=== PATIENT | male | born 1955 | race African-American/Black ===

== ENCOUNTER 2016-08-18 00:56 | Inpatient (IN) | payer MEDICARE ==
[~2016-08-18] VITALS: Ht 185.4 cm; Wt 94.0 kg
[2016-08-18] VITALS (28 sets, daily range): BP systolic 129–234; BP diastolic 74–145
[~2016-08-18 00:56] MED LIST: AMLO10TA2 PO; ATEN100T PO; HYDR50TA6 PO; LISI-334 PO
[2016-08-18] MEDS ORDERED: IV NORMAL SALINE 1000ML BAG 1,000 ML IV SCH ×2 (01:30→03:00)
[2016-08-18 01:42] LABS: BASO % 0 % (0-3); EOS % 1 % (0-3); HEMATOCRIT 42.8 % (39.0-53.0); HEMOGLOBIN 14.6 g/dL (13.0-17.5); LYMPH # 1.1 x10^3/uL (1.0-4.8); LYMPH % 11 % (24-48); MEAN CORPUSCULAR HEMOGLOBIN 30 pg (25-35); MEAN CORPUSCULAR HGB CONC 34 g/dL (31-37); MEAN CORPUSCULAR VOLUME 89 fL (79-100); MONO % 5 % (0-9); NEUT % 83 % (31-73); PLATELET COUNT 286 x10^3/uL (140-400); RED BLOOD COUNT 4.82 x10^6/uL (4.30-5.70); RED CELL DISTRIBUTION WIDTH 13.1 % (11.5-14.5); WHITE BLOOD COUNT 10.1 x10^3/uL (4.0-11.0)
[2016-08-18] MEDS ORDERED: LABETALOL 20 MG/4 ML DISP.SYRIN. IVP ONE (01:45)
[2016-08-18] MEDS ORDERED: MORPHINE SULFATE 4 MG/ML DISP.SYRIN. IV/SQ PRN (01:45)
[2016-08-18] MEDS ORDERED: ONDANSETRON PF 4 MG/2 ML VIAL. IV ONE (01:45)
[2016-08-18 01:54] LABS: CREATININE 1.7 mg/dL (0.7-1.3); GFR 49.7; POTASSIUM 3.2 mmol/L (3.5-5.1)
[2016-08-18 01:55] LABS: MAGNESIUM 1.9 mg/dL (1.8-2.4)
--- NOTE | 2016-08-18 02:16 | PHYS DOC ---
Past Medical History Past Medical History: Hypertension, Other Additional Past Medical Histor: vertigo Past Surgical History: Other Additional Past Surgical Histo: back surgery Alcohol Use: Heavy Drug Use: None Adult General Chief Complaint Chief Complaint: FOOT INJURY PAIN [facility] HPI Patient is a 61 year old male who presents with complaint of injury to the right foot. Patient states that the injury took place approximately 10 hours prior to arrival. Patient states that he was cutting down branches from a tree when a large branch fell and struck the top of his right foot. Patient states he is initially able to ambulate, however over the past few hours he has had worsening swelling and inability to bear weight on the affected extremity. Patient denies any other injuries. Patient has history of hypertension and was found to be severely hypertensive in triage. Patient states that he has had a history of uncontrolled hypertension. Patient admits that he has not been fully compliant with his oral medications at home and has not had his labetalol for the past 2 months. Patient states that he has lisinopril and clonidine at home but he does not take these daily. Patient states that he has been having intermittent chest pains and has been having dizziness starting yesterday. Patient is not having any chest pain currently but does admit to intermittent lightheadedness throughout the day today. Patient rates his pain currently as 10 out of 10 in his right foot. Review of Systems Review of Systems Constitutional: Dizziness, lightheadedness, Denies fever or chills [] Eyes: Denies change in visual acuity, redness, or eye pain [] HENT: Denies nasal congestion or sore throat [] Respiratory: Denies cough or shortness of breath [] Cardiovascular: No additional information not addressed in HPI [] GI: Denies abdominal pain, nausea, vomiting, bloody stools or diarrhea [] : Denies dysuria or hematuria [] Musculoskeletal: Right foot pain [] Integument: Denies rash or skin lesions [] Neurologic: Denies headache, focal weakness or sensory changes [] Current Medications Current Medications Current Medications Medications (Trade) Dose Ordered Sig/Johnny Start Time Stop Time Status Last Admin Dose Admin Labetalol HCl (Normodyne) 20 mg 1X ONCE 08/18/16 01:45 08/18/16 01:46 DC 08/18/16 01:58 20 MG Morphine Sulfate 4 mg 4 mg PRN Q15MIN PRN 08/18/16 01:45 08/19/16 01:44 08/18/16 01:58 4 MG Ondansetron HCl (Zofran) 4 mg 1X ONCE 08/18/16 01:45 08/18/16 01:46 DC 08/18/16 01:58 4 MG Sodium Chloride (Iv Sodium Chloride 0.9% 1000ml Bag) 1,000 ml @ 100 mls/hr Q10H 08/18/16 01:30 08/18/16 11:29 08/18/16 01:59 100 MLS/HR Allergies Allergies Allergies Coded Allergies Type Severity Reaction Last Updated Verified No Known Drug Allergies 09/10/13 No Physical Exam Physical Exam Constitutional: Alert, afebrile, appears in mild to moderate discomfort. [] HENT: Normocephalic, atraumatic, bilateral external ears normal, oropharynx moist, no oral exudates, nose normal. [] Eyes: PERRLA, EOMI, conjunctiva normal, no discharge. [] Neck: Normal range of motion, no tenderness, supple, no stridor. [] Cardiovascular: Tachycardia, regular rhythm, no murmur [] Lungs & Thorax: Bilateral breath sounds clear to auscultation [] Abdomen: Bowel sounds normal, soft, no tenderness, no masses, no pulsatile masses. [] Skin: Warm, dry, no erythema, no rash. [] Back: No tenderness, no CVA tenderness. [] Extremities: Moderate dorsal soft tissue swelling of right foot, direct tenderness to palpation, normal range of motion in all 5 toes of right foot, no cyanosis, no clubbing. [] Neurologic: Alert and oriented X 3, normal motor function, normal sensory function, no focal deficits noted. [] Current Patient Data Vital Signs Vital Signs Date Time Temp Pulse Resp B/P Pulse Ox O2 Delivery O2 Flow Rate FiO2 08/18/16 02:26 95 220/143 97 Room Air 08/18/16 01:58 16 08/18/16 00:56 98.0 98.0 Lab Values Laboratory Tests Test 08/18/16 01:17 White Blood Count 10.1x10^3/uL (4.0-11.0) Red Blood Count 4.82x10^6/uL (4.30-5.70) Hemoglobin 14.6g/dL (13.0-17.5) Hematocrit 42.8% (39.0-53.0) Mean Corpuscular Volume 89fL (79-100) Mean Corpuscular Hemoglobin 30pg (25-35) Mean Corpuscular Hemoglobin Concent 34g/dL (31-37) Red Cell Distribution Width 13.1% (11.5-14.5) Platelet Count 286x10^3/uL (140-400) Neutrophils (%) (Auto) 83% (31-73) H Lymphocytes (%) (Auto) 11% (24-48) L Monocytes (%) (Auto) 5% (0-9) Eosinophils (%) (Auto) 1% (0-3) Basophils (%) (Auto) 0% (0-3) Neutrophils # (Auto) 8.4x10^3uL (1.8-7.7) H Lymphocytes # (Auto) 1.1x10^3/uL (1.0-4.8) Monocytes # (Auto) 0.5x10^3/uL (0.0-1.1) Eosinophils # (Auto) 0.1x10^3/uL (0.0-0.7) Basophils # (Auto) 0.0x10^3/uL (0.0-0.2) Sodium Level 142mmol/L (136-145) Potassium Level 3.2mmol/L (3.5-5.1) L Chloride Level 104mmol/L (98-107) Carbon Dioxide Level 29mmol/L (21-32) Anion Gap 9 (6-14) Blood Urea Nitrogen 22mg/dL (8-26) Creatinine 1.7mg/dL (0.7-1.3) H Estimated GFR (Cockcroft-Gault) 49.7 Glucose Level 106mg/dL (70-99) H Calcium Level 9.0mg/dL (8.5-10.1) Magnesium Level 1.9mg/dL (1.8-2.4) Laboratory Tests 08/18/16 01:17 Laboratory Tests 08/18/16 01:17 EKG EKG Interpreted by me: Heart rate 106, sinus tachycardia, left axis deviation, no acute ST/T-wave abnormalities present [] Radiology/Procedures Radiology/Procedures 3 view right foot x-ray interpreted by me: Mild to moderate dorsal soft tissue swelling, no fractures, no dislocations. [] Course & Med Decision Making Course & Med Decision Making Pertinent Labs and Imaging studies reviewed. (See chart for details) Patient was treated with IV morphine, Zofran, and IV labetalol. On reevaluation , patient states that his pain has improved, however patient continues to be severely hypertensive. Patient does admit that he is having lightheadedness while in the emergency department. Patient started on IV Cardene for control of the patient's blood pressure. The patient will be admitted for further treatment. Patient was admitted to Dr. Luciano and consult was placed to Dr. Chang of cardiology to follow with patient in hospital. Critical care time excluding procedures: 45 minutes Dragon Disclaimer Dragon Disclaimer This electronic medical record was generated, in whole or in part, using a voice recognition dictation system. Departure Departure Impression: Primary Impression: Malignant hypertension Additional Impressions: Contusion of right foot Noncompliance w/medication treatment due to intermit use of medication Disposition: 09 ADMITTED INPATIENT Admitting Physician: Other Condition: GUARDED Referrals: NO PCP (PCP) Problem Qualifiers Additional Impressions: Contusion of right foot Encounter type: initial encounter Qualified Code: S90.31XA - Contusion of right foot, initial encounter NOE MARROQUIN MD Aug 18, 2016 02:15
[2016-08-18] MEDS ORDERED: ACETAMINOPHEN 325 MG TABLET. PO PRN (02:45)
[2016-08-18] MEDS ORDERED: MORPHINE SULFATE 4 MG/ML DISP.SYRIN. IV PRN (03:00)
[2016-08-18] MEDS ORDERED: ONDANSETRON PF 4 MG/2 ML VIAL. IV PRN (03:00)
[2016-08-18] MEDS ORDERED: POTASSIUM CHLORIDE 20 MEQ TABLET.ER. PO ONE ×2 (03:15→08:15)
[2016-08-18] MEDS: NICARDIPINE HCL 50 MG in IV NORMAL SALINE 250ML 250 ML IV PRN ×2 (03:35→07:17)
[2016-08-18] MEDS ORDERED: LABE100T3 PO (04:23)
[2016-08-18] MEDS ORDERED: AMLODIPINE BESYLATE 10 MG TABLET PO ONE (05:45)
[2016-08-18] MEDS ORDERED: LABETALOL HCL 200 MG TABLET PO ONE ×2 (05:45)
[2016-08-18] MEDS: OXYCODONE/APAP 5/325 TABLET. PO PRN ×2 (05:47→12:22)
--- NOTE | 2016-08-18 07:14 | EKG ---
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
--- NOTE | 2016-08-18 07:15 | RAD ---
Portable right foot, 3 views, 08/18/2016: History: Injury, swelling There is a mild hallux valgus deformity. There is mild degenerative change at the first MTP joint. No acute fracture or dislocation is identified. There is mild subcutaneous edema. IMPRESSION: No acute bony abnormality is detected.
[2016-08-18] MEDS: HYDROCHLOROTHIAZIDE 25 MG TABLET PO SCH (09:28)
[2016-08-18] MEDS: LISINOPRIL 20 MG TABLET PO SCH (09:28)
--- NOTE | 2016-08-18 09:30 | PDOC2 ---
CARDIAC CONSULT DATE OF CONSULT Date of Consult DATE: 08/18/16 TIME: 09:27 REASON FOR CONSULT Reason for Consult: malignant HTN, Chest pain REFERRING PHYSICIAN Referring Physician: Dr. Farooq Luciano HISTORY OF PRESENT ILLNESS HISTORY OF PRESENT ILLNESS 61 year old male who presented to ER with right foot pain after a tree limb fell on his foot. Found to have malignant HTN with BP of 211 - 228/144-153. Admits to not taking labetalol for > 2 months due to fatigue and sleepiness. Has taken his other medications on an intermittent basis and has no PCP. Left pectoral region CP described as dull as well as pain in the left neck radiating into the left arm. Pain associated with dyspnea, dizziness , a "hot" sensation and not exacerbated by inspiration. No acute changes in EKG and initial troponin level not consistent with ACS. Was treated with IV nicardipine for BP control and oral meds resumed on staggered basis. Reason for Visit: HTN and CP PAST MEDICAL HISTORY Cardiovascular: HTN CENTRAL NERVOUS SYSTEM: CVA (?) PAST SURGICAL HISTORY Past Surgical History: Other (lumbar back ) FAMILY HISTORY Family History: Coronary Artery Disease (mother & brother), Stroke (brother) SOCIAL HISTORY Smoke: No ALCOHOL: heavy (3-4 beers per day) Drugs: None CURRENT MEDICATIONS CURRENT MEDICATIONS Current Medications Medications (Trade) Dose Ordered Sig/Johnny Route PRN Reason Start Time Stop Time Status Last Admin Dose Admin Morphine Sulfate 4 mg 4 mg PRN Q15MIN PRN IV/SQ PAIN GREATER THAN 3/10 08/18/16 01:45 08/19/16 01:44 08/18/16 01:58 Sodium Chloride (Iv Sodium Chloride 0.9% 1000ml Bag) 1,000 ml @ 100 mls/hr Q10H IV 08/18/16 01:30 08/18/16 11:29 08/18/16 01:59 Labetalol HCl (Normodyne) 20 mg 1X ONCE IVP 08/18/16 01:45 08/18/16 01:46 DC 08/18/16 01:58 Ondansetron HCl 4 mg 4 mg 1X ONCE IV 08/18/16 01:45 08/18/16 01:46 DC 08/18/16 01:58 Nicardipine HCl/ Sodium Chloride (Cardene/Iv Sodium Chloride 0.9% 250ml) 270 ml @ 0 mls/hr CONT PRN IV SEE I/O RECORD 08/18/16 03:00 08/18/16 07:17 Morphine Sulfate 4 mg PRN Q2HR PRN IV PAIN 08/18/16 03:00 08/19/16 02:59 08/18/16 03:54 Potassium Chloride (Klor-Con) 40 meq 1X ONCE PO 08/18/16 03:15 08/18/16 03:16 DC 08/18/16 03:15 Oxycodone/ Acetaminophen (Percocet 5/325) 1 tab PRN Q4HRS PRN PO PAIN 08/18/16 05:00 08/18/16 05:47 Amlodipine Besylate (Norvasc) 10 mg ONCE ONCE PO 08/18/16 05:45 08/18/16 05:46 DC 08/18/16 05:47 Labetalol HCl (Trandate) 100 mg ONCE ONCE PO 08/18/16 05:45 08/18/16 05:46 DC 08/18/16 05:48 ALLERGIES ALLERGIES: Coded Allergies: No Known Drug Allergies (Unverified , 09/10/13) ROS General: YES: Fatigue, Malaise PSYCHOLOGICAL ROS: No: Anxiety, Behavioral Disorder, Concentration difficultie , Decreased libido, Depression, Disorientation, Hallucinations, Hostility, Irritablity, Memory difficulties, Mood Swings, Obsessive thoughts, Other, Physical abuse, Sexual abuse, Sleep disturbances, Suicidal ideation Eyes: Yes Blurry vision, No Decreased vision, No Double vision, No Dry eyes, No Excessive tearing, No Eye Pain, No Itchy Eyes, No Loss of vision, No Other, No Photophobia, No Scotomata, No Uses contacts, No Uses glasses HEENT: No: Epistaxis, Heacaches, Hearing change, Nasal congestion, Nasal discharge, Oral lesions, Other, Sinus pain, Sneezing, Snoring, Sore Throat, Tinnitus, Vertigo, Visual Changes, Vocal changes ALLERGY AND IMMUNOLOGY: No: Hives, Insect Bite Sensitivity, Itchy/Watery Eyes, Nasal Congestion, Other, Post Nasal Drip, Seasonal Allergies Hematological and Lymphatic: No: Bleeding Problems, Blood Clots, Blood Transfusions, Brusing, Night Sweats, Other, Pallor, Swollen Lymph Nodes ENDOCRINE: No: Breast Changes, Galactorrhea, Hair Pattern Changes, Hot Flashes , Malaise/lethargy, Mood Swings, Other, Palpitations, Polydipsia/polyuria, Skin Changes, Temperature Intolerance, Unexpected Weight Changes Respiratory: YES: SOB with excertion, No: Cough, Hemoptysis, Orthopnea, Other, Pleuritic Pain, Shortness of breath , Sputum Changes, Stridor, Tachypnea, Wheezing Cardiovascular: yes Chest Pain, No Edema, No Lt Headedness, No Orthopnea, No Other, No Palpitations, No Paroxysmal Noc. Dyspnea Gastrointestinal: No Abdominal Pain, No Constipation, No Diarrhea, No Hematochezia, No Melena, No Nausea, No Other, No Vomiting Genitourinary: YES , No Discharge, No Dysuria, No Flank Pain, No Frequency, No Hematuria, No Incontinence, No Other, No Pain, No Retention, No Urgency Musculoskeletal: Yes Pain In: (right foot), No Gait Disturbance, No Joint Pain, No Joint Stiffness, No Joint Swelling, No Muscle Pain, No Muscular Weakness, No Other, No Swelling In: Neurological: No Behavorial Changes, No Bowel/Bladder ControlChng, No Confusion , No Dizziness, No Gait Disturbance, No Headaches, No Impaired Coord/balance, No Memory Loss, No Numbness/Tingling, No Other, No Seizures, No Speech Problems , No Tremors, No Visual Changes, No Weakness Skin: No Acne, No Dry Skin, No Eczema, No Hair Changes, No Lumps, No Mole Changes, No Mottling, No Nail Changes, No Other, No Pruritus, No Rash, No Skin Lesion Changes PHYSICAL EXAM General: Alert, Oriented X3, Cooperative, No acute distress HEENT: Atraumatic, PERRLA Lungs: Clear to auscultation, Normal air movement Heart: Regular rate, Normal S1, Normal S2, No murmurs, Other (no carotid bruits ; tele: SR) Abdomen: Normal bowel sounds, Soft, No tenderness Extremities: No edema, Normal pulses Skin: No rashes Neuro: Normal speech, Strength at 5/5 X4 ext Psych/Mental Status: Mental status NL, Mood NL MUSCULOSKELETAL: No deformity VITALS VITALS Vital Signs Date Time Temp Pulse Resp B/P Pulse Ox O2 Delivery O2 Flow Rate FiO2 08/18/16 07:00 96 16 130/91 98 Room Air 08/18/16 03:30 97.5 97.5 LABS Lab: Laboratory Tests Test 08/18/16 01:17 White Blood Count 10.1x10^3/uL (4.0-11.0) Red Blood Count 4.82x10^6/uL (4.30-5.70) Hemoglobin 14.6g/dL (13.0-17.5) Hematocrit 42.8% (39.0-53.0) Mean Corpuscular Volume 89fL (79-100) Mean Corpuscular Hemoglobin 30pg (25-35) Mean Corpuscular Hemoglobin Concent 34g/dL (31-37) Red Cell Distribution Width 13.1% (11.5-14.5) Platelet Count 286x10^3/uL (140-400) Neutrophils (%) (Auto) 83% (31-73) Lymphocytes (%) (Auto) 11% (24-48) Monocytes (%) (Auto) 5% (0-9) Eosinophils (%) (Auto) 1% (0-3) Basophils (%) (Auto) 0% (0-3) Neutrophils # (Auto) 8.4x10^3uL (1.8-7.7) Lymphocytes # (Auto) 1.1x10^3/uL (1.0-4.8) Monocytes # (Auto) 0.5x10^3/uL (0.0-1.1) Eosinophils # (Auto) 0.1x10^3/uL (0.0-0.7) Basophils # (Auto) 0.0x10^3/uL (0.0-0.2) Sodium Level 142mmol/L (136-145) Potassium Level 3.2mmol/L (3.5-5.1) Chloride Level 104mmol/L (98-107) Carbon Dioxide Level 29mmol/L (21-32) Anion Gap 9 (6-14) Blood Urea Nitrogen 22mg/dL (8-26) Creatinine 1.7mg/dL (0.7-1.3) Estimated GFR (Cockcroft-Gault) 49.7 Glucose Level 106mg/dL (70-99) Calcium Level 9.0mg/dL (8.5-10.1) Magnesium Level 1.9mg/dL (1.8-2.4) IMAGES IMAGES no CXR for review EKG EKG ST with non-specific ST and T changes ASSESSMENT/PLAN ASSESSMENT/PLAN 1. malignant HTN now controlled with IV nicardipine continue oral meds wean IV meds 2. chest pain etiology ischemic vs demand mediated from malignant HTN serial cardiac enzymes CXR to eval for anatomic etiology echo to assess for WMA and DD as well as evaluate LVEF will need ischemic evaluation given risk factors: male with age > 55; HTN; family history if BP controlled, Lexiscan MPI tomorrow - can not walk treadmill due to right foot pain start ASA daily check FLP - start statins if indicated 3. lipid status unknown check FLP 4. ETOH use may benefit from withdrawal protocol 5. hypokalemia has been replaced 6. medical non-compliance Problems: DUSTIN MCDONALD APRN Aug 18, 2016 09:30
--- NOTE | 2016-08-18 11:26 | RAD ---
Indication hypertension. Protocol study. A single view of the chest was obtained. Comparison is made to an examination 12/19/2014. Ectatic thoracic aorta is noted. It is slightly more conspicuous than on the previous exam likely secondary to rotation. If mediastinal or great vessel pathology is suspect CT examination would be advised. Heart size is at the upper limits of normal. There is no congestive heart failure or focal infiltrate in either lung. There is no significant pleural fluid or pneumothorax. IMPRESSION: No acute finding in the chest. Ectatic thoracic aorta
[2016-08-18] MEDS ORDERED: ASPIRIN ENTERIC COATED 81 MG TABLET.DR. PO ONE (13:30)
[2016-08-18] MEDS ORDERED: ASPIRIN 325 MG TABLET PO ONE (13:30)
[2016-08-18] MEDS: LABETALOL HCL 100 MG TABLET PO SCH (21:01)
--- NOTE | 2016-08-18 21:29 | HP ---
ADMIT DATE: 08/18/2016 CHIEF COMPLAINT: Foot pain. HISTORY OF PRESENT ILLNESS: The patient is a pleasant 61-year-old male who had a ____fall on his foot. He presented to the ER and complained of foot pain. While he was in the ER, he was noted to have systolic pressures into the 228 range. He has now been admitted with accelerated hypertension. It should be noted that he also has some associated chest pain, shortness of breath, weakness and his troponin was slightly high at 0.017. He has now been admitted to the ICU where I examined him earlier this morning. PAST MEDICAL HISTORY: Noncompliance, hypertension. He has not been taking his meds for a couple of months. ALLERGIES: None. FAMILY HISTORY: Hypertension. SOCIAL HISTORY: He does not drink, smoke or take drugs. MEDICATIONS: Reviewed, please refer to the MRAD. REVIEW OF SYSTEMS: GENERAL: No history of weight change, weakness or fevers. SKIN: No bruising, hair changes or rashes. EYES: No blurred, double or loss of vision. NOSE AND THROAT: No history of nosebleeds, hoarseness or sore throat. HEART: He complains of intermittent chest pain. LUNGS: Denies cough, hemoptysis, wheezing or shortness of breath. GASTROINTESTINAL: Denies changes in appetite, nausea, vomiting, diarrhea or constipation. GENITOURINARY: No history of frequency, urgency, hesitancy or nocturia. NEUROLOGIC: Denies history of numbness, tingling, tremor or weakness. PSYCHIATRIC: No history of panic, anxiety or depression. ENDOCRINE: No history of heat or cold intolerance, polyuria or polydipsia. EXTREMITIES: Denies muscle weakness, joint pain, pain on walking or stiffness. PHYSICAL EXAMINATION: VITAL SIGNS: Temperature afebrile, pulse 67, respirations ____, blood pressure was down this morning to 130/91. It was as high as ____/136. GENERAL: He is alert, cooperative. HEART: Normal S1, S2. LUNGS: Clear. ABDOMEN: Soft, positive bowel sounds. EXTREMITIES: No edema. SKIN: No rashes. PSYCHIATRIC: He is stable. VASCULAR: Good capillary refill. ENDOCRINE: No thyromegaly. LYMPHATICS: No cervical nodes. LABORATORY DATA: No bruising. Electrolytes normal, other than potassium of 3.2 and a creatinine of 1.7. His glucose was slightly high at 106. Troponin 0.017. TSH normal at 2.219, white count 10, hemoglobin 14.6, platelets 286. Chest x-ray negative, but there was mention of an ectatic thoracic aorta. Foot x-ray negative. ASSESSMENT AND PLAN: Accelerated hypertension with some chest pain. The patient has been admitted to the ICU. He was on a Cardene drip and we are slowly adding antihypertensives by p.o. We consulted cardiology, Dr. Ibarra ____ nurse practitioner is seeing the patient. The patient may be going for a stress test tomorrow if stable, we certainly agree and appreciate their input. Serial enzymes, serial EKGs, cardiac monitoring, echocardiogram. CARISSA BUCK DO DR: GIANNI/addie JOB#: [id number] / [id number]
[2016-08-18] MEDS ORDERED: NYSTATIN 100,000 UNITS/ML 5 ML ORAL.SUSP. SWSW SCH (22:00)
[2016-08-19 03:00] VITALS: BP 152/95
[2016-08-19 07:00] VITALS: BP 176/104
[2016-08-19 07:16] LABS: BASO % 0 % (0-3); EOS % 2 % (0-3); HEMOGLOBIN 13.3 g/dL (13.0-17.5); LYMPH # 1.7 x10^3/uL (1.0-4.8); LYMPH % 26 % (24-48); MEAN CORPUSCULAR HEMOGLOBIN 31 pg (25-35); MEAN CORPUSCULAR HGB CONC 34 g/dL (31-37); MEAN CORPUSCULAR VOLUME 90 fL (79-100); MONO % 9 % (0-9); NEUT % 63 % (31-73); PLATELET COUNT 261 x10^3/uL (140-400); RED BLOOD COUNT 4.34 x10^6/uL (4.30-5.70); RED CELL DISTRIBUTION WIDTH 13.4 % (11.5-14.5); WHITE BLOOD COUNT 6.3 x10^3/uL (4.0-11.0)
[2016-08-19 07:34] LABS: CALCIUM 8.2 mg/dL (8.5-10.1); CREATININE 1.6 mg/dL (0.7-1.3); GFR 53.3; POTASSIUM 3.2 mmol/L (3.5-5.1)
[2016-08-19 07:42] LABS: CHOLESTEROL/HDL RATIO 2.1
[2016-08-19] MEDS ORDERED: ASPIRIN ENTERIC COATED 81 MG TABLET.DR. PO SCH (08:00)
[2016-08-19] MEDS ORDERED: REGADENOSON 0.4 MG/5 ML DISP.SYRIN. IV ONE (08:00)
[2016-08-19] MEDS ORDERED: AMLODIPINE BESYLATE 10 MG TABLET PO SCH (09:00)
[2016-08-19] MEDS: LISINOPRIL 20 MG TABLET PO SCH (09:37)
[2016-08-19] MEDS: HYDROCHLOROTHIAZIDE 25 MG TABLET PO SCH (09:37)
[2016-08-19] MEDS: LABETALOL HCL 100 MG TABLET PO SCH (09:38)
--- NOTE | 2016-08-19 10:21 | CARD ---
APPROVED REPORT EXAM: Two-dimensional and M-mode echocardiogram with Doppler and color Doppler. Other Information Quality : GoodHR: 89bpm Rhythm : NSR INDICATION Hypertension/HCVD Chest Pain 2D DIMENSIONS RVDd2.4 (2.9-3.5cm)Left Atrium(2D)4.4 (1.6-4.0cm) IVSd1.6 (0.7-1.1cm)Aortic Root(2D)3.0 (2.0-3.7cm) LVDd5.3 (3.9-5.9cm)LVOT Diameter2.3 (1.8-2.4cm) PWd1.2 (0.7-1.1cm)LVDs3.6 (2.5-4.0cm) FS (%) 32.4 %SV80.6 ml LVEF(%)60.2 (>50%) Aortic Valve AoV Peak Rodrigo.187.0cm/sAoV VTI28.3cm AO Peak GR.14.0mmHgLVOT Peak Rodrigo.162.8cm/s AO Mean GR.9mmHgAVA (VMAX)3.72cm2 Mitral Valve MV E Llwbtjxg06.2cm/sMV E Peak Gr.3mmHg MV DECEL [id number] A Ddsuotgz46.0cm/s MV E Mean Gr.1mmHgE/A Ratio0.6 Pulmonary Valve PV Peak Tltkxbhf932.0cm/s Pulmonary Vein S1 Efzmpzip35.0cm/sD2 Aqvtjqwy26.4cm/s PVa [id number] LEFT VENTRICLE The left ventricle is normal size. There is moderate concentric left ventricular hypertrophy. The lef t ventricular systolic function is normal and the ejection fraction is within normal range. The Eject ion Fraction is 60-65%. There is normal LV segmental wall motion. Transmitral Doppler flow pattern is Grade I-abnormal relaxation pattern. RIGHT VENTRICLE The right ventricle is normal size. There is normal right ventricular wall thickness. The right ventr icular systolic function is normal. ATRIA The left atrium is mildly dilated. The right atrium size is normal. The interatrial septum is intact with no evidence for an atrial septal defect or patent foramen ovale as noted on 2-D or Doppler imagi ng. AORTIC VALVE The aortic valve is sclerotic. Doppler and Color Flow revealed no significant aortic regurgitation. T here is no significant aortic valvular stenosis. MITRAL VALVE The mitral valve leaflets are thickened. There is no evidence of mitral valve prolapse. There is no m itral valve stenosis. Doppler and Color Flow revealed no mitral valve regurgitation noted. TRICUSPID VALVE The tricuspid valve is normal in structure and function. Doppler and Color Flow revealed no tricuspid valve regurgitation noted. There is no tricuspid valve stenosis. PULMONIC VALVE Doppler and Color Flow revealed no pulmonic valvular regurgitation. GREAT VESSELS The aortic root is mildly enlarged. The ascending aorta is normal in size. Due to poor image quality, the IVC could not be assessed. PERICARDIAL EFFUSION There is no evidence of significant pericardial effusion. Critical Notification Critical Value: No <Conclusion> There is moderate concentric left ventricular hypertrophy. The left ventricular systolic function is normal and the ejection fraction is within normal range. T he Ejection Fraction is 60-65%. There is normal LV segmental wall motion. Transmitral Doppler flow pattern is Grade I-abnormal relaxation pattern.
--- NOTE | 2016-08-19 10:58 | PDOC ---
CARDIO Progress Notes Date and Time Date of Service 08/19/2016 Time of Evaluation 1033 Subjective Subjective: No Chest Pain, No shortness of breath, No Palpitations, No Dizziness, Other (right foot pain ) Vitals Vitals Vital Signs Date Time Temp Pulse Resp B/P Pulse Ox O2 Delivery O2 Flow Rate FiO2 08/19/16 09:38 81 176/104 08/19/16 07:00 97.9 16 95 Room Air 97.9 Weight Weight [ ] Input and Output Intake and Output Intake and Output 08/19/16 07:00 Intake Total 1550 ml Output Total 875 ml Balance 675 ml Intake Oral 1550 ml Output Urine Total 875 ml Laboratory Labs Laboratory Tests Test 08/18/16 12:55 08/18/16 18:18 08/19/16 06:10 Troponin I Quantitative 0.017ng/mL (0.000-0.055) < 0.017ng/mL (0.000-0.055) White Blood Count 6.3x10^3/uL (4.0-11.0) Red Blood Count 4.34x10^6/uL (4.30-5.70) Hemoglobin 13.3g/dL (13.0-17.5) Hematocrit 39.0% (39.0-53.0) Mean Corpuscular Volume 90fL (79-100) Mean Corpuscular Hemoglobin 31pg (25-35) Mean Corpuscular Hemoglobin Concent 34g/dL (31-37) Red Cell Distribution Width 13.4% (11.5-14.5) Platelet Count 261x10^3/uL (140-400) Neutrophils (%) (Auto) 63% (31-73) Lymphocytes (%) (Auto) 26% (24-48) Monocytes (%) (Auto) 9% (0-9) Eosinophils (%) (Auto) 2% (0-3) Basophils (%) (Auto) 0% (0-3) Neutrophils # (Auto) 4.0x10^3uL (1.8-7.7) Lymphocytes # (Auto) 1.7x10^3/uL (1.0-4.8) Monocytes # (Auto) 0.6x10^3/uL (0.0-1.1) Eosinophils # (Auto) 0.1x10^3/uL (0.0-0.7) Basophils # (Auto) 0.0x10^3/uL (0.0-0.2) Sodium Level 141mmol/L (136-145) Potassium Level 3.2mmol/L (3.5-5.1) Chloride Level 104mmol/L (98-107) Carbon Dioxide Level 28mmol/L (21-32) Anion Gap 9 (6-14) Blood Urea Nitrogen 22mg/dL (8-26) Creatinine 1.6mg/dL (0.7-1.3) Estimated GFR (Cockcroft-Gault) 53.3 Glucose Level 105mg/dL (70-99) Calcium Level 8.2mg/dL (8.5-10.1) Triglycerides Level 49mg/dL (0-150) Cholesterol Level 160mg/dL (0-200) LDL Cholesterol, Calculated 73mg/dL (0-100) VLDL Cholesterol, Calculated 10mg/dL (0-40) HDL Cholesterol 77mg/dL (40-60) Cholesterol/HDL Ratio 2.1 Physical Exam HEENT: NO Carotid Bruit Chest: Symmetric LUNGS: Clear to Auscultation Heart: RRR, no rubs, no gallops, no murmurs, other (tele: SR) Abdomen: Soft N/T Extremities: No Edema Neurology: alert, oriented, follow commands Assessment Assessment 1. malignant HTN off IV meds and controlled with oral meds echo with preserved LV function and hypertensive heart disease advised of need to obtain PCP and for ongoing management of HTN 2. chest pain etiology ischemic vs demand mediated from malignant HTN serial cardiac enzymes ruled out AR CXR without significant findings echo with preserved LV function and no WMA MPI in progress to evaluate for ischemic heart disease continue ASA and beta-blockers 3. lipids controlled without medications 4. ETOH use 5. medical non-compliance If MPI non-ischemic, may discharge later today Discussed with hospitalist service DUSTIN MCDONALD APRN Aug 19, 2016 10:58
[2016-08-19 11:14] VITALS: BP 153/90
[2016-08-19] MEDS ORDERED: POTASSIUM CHLORIDE 20 MEQ TABLET.ER. PO ONE (13:15)
--- NOTE | 2016-08-19 13:20 | PDOC ---
PROGRESS NOTES Chief Complaint Chief Complaint Assessment -malignant HTN: off IV meds and controlled with oral meds -chest pain -hypokalemia -EtOH use -Medical non-compliance History of Present Illness History of Present Illness Mr. Tolmin was resting comfortably in bed on examination this morning. Discussed his non-compliance with his blood pressure medications and his need to adhere to his treatment. Discussed need to follow up with PCP for continued HTN management. Patient has MPI pending, and if negative will be discharged. Vitals Vitals Vital Signs Date Time Temp Pulse Resp B/P Pulse Ox O2 Delivery O2 Flow Rate FiO2 08/19/16 11:14 98.2 86 18 153/90 97 Room Air 98.2 Physical Exam General: Alert, Oriented X3, Cooperative, No acute distress Heart: Regular rate, Normal S1, Normal S2, No murmurs, Other (no carotid bruits ; tele: SR) Lungs: Clear Abdomen: Normal bowel sounds, Soft, No tenderness Extremities: No edema, Normal pulses Skin: No rashes, No significant lesion Labs LABS Laboratory Tests Test 08/18/16 18:18 08/19/16 06:10 Troponin I Quantitative < 0.017ng/mL (0.000-0.055) White Blood Count 6.3x10^3/uL (4.0-11.0) Red Blood Count 4.34x10^6/uL (4.30-5.70) Hemoglobin 13.3g/dL (13.0-17.5) Hematocrit 39.0% (39.0-53.0) Mean Corpuscular Volume 90fL (79-100) Mean Corpuscular Hemoglobin 31pg (25-35) Mean Corpuscular Hemoglobin Concent 34g/dL (31-37) Red Cell Distribution Width 13.4% (11.5-14.5) Platelet Count 261x10^3/uL (140-400) Neutrophils (%) (Auto) 63% (31-73) Lymphocytes (%) (Auto) 26% (24-48) Monocytes (%) (Auto) 9% (0-9) Eosinophils (%) (Auto) 2% (0-3) Basophils (%) (Auto) 0% (0-3) Neutrophils # (Auto) 4.0x10^3uL (1.8-7.7) Lymphocytes # (Auto) 1.7x10^3/uL (1.0-4.8) Monocytes # (Auto) 0.6x10^3/uL (0.0-1.1) Eosinophils # (Auto) 0.1x10^3/uL (0.0-0.7) Basophils # (Auto) 0.0x10^3/uL (0.0-0.2) Sodium Level 141mmol/L (136-145) Potassium Level 3.2mmol/L (3.5-5.1) Chloride Level 104mmol/L (98-107) Carbon Dioxide Level 28mmol/L (21-32) Anion Gap 9 (6-14) Blood Urea Nitrogen 22mg/dL (8-26) Creatinine 1.6mg/dL (0.7-1.3) Estimated GFR (Cockcroft-Gault) 53.3 Glucose Level 105mg/dL (70-99) Calcium Level 8.2mg/dL (8.5-10.1) Triglycerides Level 49mg/dL (0-150) Cholesterol Level 160mg/dL (0-200) LDL Cholesterol, Calculated 73mg/dL (0-100) VLDL Cholesterol, Calculated 10mg/dL (0-40) HDL Cholesterol 77mg/dL (40-60) Cholesterol/HDL Ratio 2.1 Review of Systems Review of Systems Denied chest pain Denied SOA Denied nausea, vomiting, fevers, and chills Assessment and Plan Assessmemt and Plan Assessment -malignant HTN: off IV meds and controlled with oral meds -chest pain -hypokalemia -EtOH use -Medical non-compliance Plan -MPI pending, if negative discharge -Replaced potassium -Cardiology following for malignant HTN and chest pain -Continue HTN medications -Needs PCP to follow up with and manage HTN -Appreciate subspecialist input Problems: Comment Review of Relevant I have reviewed the following items hanh (where applicable) has been applied. Labs Laboratory Tests Test 08/18/16 01:17 08/18/16 03:36 08/18/16 12:55 08/18/16 18:18 White Blood Count 10.1x10^3/uL (4.0-11.0) Red Blood Count 4.82x10^6/uL (4.30-5.70) Hemoglobin 14.6g/dL (13.0-17.5) Hematocrit 42.8% (39.0-53.0) Mean Corpuscular Volume 89fL (79-100) Mean Corpuscular Hemoglobin 30pg (25-35) Mean Corpuscular Hemoglobin Concent 34g/dL (31-37) Red Cell Distribution Width 13.1% (11.5-14.5) Platelet Count 286x10^3/uL (140-400) Neutrophils (%) (Auto) 83% (31-73) Lymphocytes (%) (Auto) 11% (24-48) Monocytes (%) (Auto) 5% (0-9) Eosinophils (%) (Auto) 1% (0-3) Basophils (%) (Auto) 0% (0-3) Neutrophils # (Auto) 8.4x10^3uL (1.8-7.7) Lymphocytes # (Auto) 1.1x10^3/uL (1.0-4.8) Monocytes # (Auto) 0.5x10^3/uL (0.0-1.1) Eosinophils # (Auto) 0.1x10^3/uL (0.0-0.7) Basophils # (Auto) 0.0x10^3/uL (0.0-0.2) Sodium Level 142mmol/L (136-145) Potassium Level 3.2mmol/L (3.5-5.1) Chloride Level 104mmol/L (98-107) Carbon Dioxide Level 29mmol/L (21-32) Anion Gap 9 (6-14) Blood Urea Nitrogen 22mg/dL (8-26) Creatinine 1.7mg/dL (0.7-1.3) Estimated GFR (Cockcroft-Gault) 49.7 Glucose Level 106mg/dL (70-99) Calcium Level 9.0mg/dL (8.5-10.1) Magnesium Level 1.9mg/dL (1.8-2.4) Thyroid Stimulating Hormone (TSH) 2.219uIU/mL (0.358-3.74) Nasal Screen MRSA (PCR) Negative (Negative) Troponin I Quantitative 0.017ng/mL (0.000-0.055) < 0.017ng/mL (0.000-0.055) Test 08/19/16 06:10 White Blood Count 6.3x10^3/uL (4.0-11.0) Red Blood Count 4.34x10^6/uL (4.30-5.70) Hemoglobin 13.3g/dL (13.0-17.5) Hematocrit 39.0% (39.0-53.0) Mean Corpuscular Volume 90fL (79-100) Mean Corpuscular Hemoglobin 31pg (25-35) Mean Corpuscular Hemoglobin Concent 34g/dL (31-37) Red Cell Distribution Width 13.4% (11.5-14.5) Platelet Count 261x10^3/uL (140-400) Neutrophils (%) (Auto) 63% (31-73) Lymphocytes (%) (Auto) 26% (24-48) Monocytes (%) (Auto) 9% (0-9) Eosinophils (%) (Auto) 2% (0-3) Basophils (%) (Auto) 0% (0-3) Neutrophils # (Auto) 4.0x10^3uL (1.8-7.7) Lymphocytes # (Auto) 1.7x10^3/uL (1.0-4.8) Monocytes # (Auto) 0.6x10^3/uL (0.0-1.1) Eosinophils # (Auto) 0.1x10^3/uL (0.0-0.7) Basophils # (Auto) 0.0x10^3/uL (0.0-0.2) Sodium Level 141mmol/L (136-145) Potassium Level 3.2mmol/L (3.5-5.1) Chloride Level 104mmol/L (98-107) Carbon Dioxide Level 28mmol/L (21-32) Anion Gap 9 (6-14) Blood Urea Nitrogen 22mg/dL (8-26) Creatinine 1.6mg/dL (0.7-1.3) Estimated GFR (Cockcroft-Gault) 53.3 Glucose Level 105mg/dL (70-99) Calcium Level 8.2mg/dL (8.5-10.1) Triglycerides Level 49mg/dL (0-150) Cholesterol Level 160mg/dL (0-200) LDL Cholesterol, Calculated 73mg/dL (0-100) VLDL Cholesterol, Calculated 10mg/dL (0-40) HDL Cholesterol 77mg/dL (40-60) Cholesterol/HDL Ratio 2.1 Laboratory Tests Test 08/18/16 18:18 08/19/16 06:10 Troponin I Quantitative < 0.017ng/mL (0.000-0.055) White Blood Count 6.3x10^3/uL (4.0-11.0) Red Blood Count 4.34x10^6/uL (4.30-5.70) Hemoglobin 13.3g/dL (13.0-17.5) Hematocrit 39.0% (39.0-53.0) Mean Corpuscular Volume 90fL (79-100) Mean Corpuscular Hemoglobin 31pg (25-35) Mean Corpuscular Hemoglobin Concent 34g/dL (31-37) Red Cell Distribution Width 13.4% (11.5-14.5) Platelet Count 261x10^3/uL (140-400) Neutrophils (%) (Auto) 63% (31-73) Lymphocytes (%) (Auto) 26% (24-48) Monocytes (%) (Auto) 9% (0-9) Eosinophils (%) (Auto) 2% (0-3) Basophils (%) (Auto) 0% (0-3) Neutrophils # (Auto) 4.0x10^3uL (1.8-7.7) Lymphocytes # (Auto) 1.7x10^3/uL (1.0-4.8) Monocytes # (Auto) 0.6x10^3/uL (0.0-1.1) Eosinophils # (Auto) 0.1x10^3/uL (0.0-0.7) Basophils # (Auto) 0.0x10^3/uL (0.0-0.2) Sodium Level 141mmol/L (136-145) Potassium Level 3.2mmol/L (3.5-5.1) Chloride Level 104mmol/L (98-107) Carbon Dioxide Level 28mmol/L (21-32) Anion Gap 9 (6-14) Blood Urea Nitrogen 22mg/dL (8-26) Creatinine 1.6mg/dL (0.7-1.3) Estimated GFR (Cockcroft-Gault) 53.3 Glucose Level 105mg/dL (70-99) Calcium Level 8.2mg/dL (8.5-10.1) Triglycerides Level 49mg/dL (0-150) Cholesterol Level 160mg/dL (0-200) LDL Cholesterol, Calculated 73mg/dL (0-100) VLDL Cholesterol, Calculated 10mg/dL (0-40) HDL Cholesterol 77mg/dL (40-60) Cholesterol/HDL Ratio 2.1 Medications Current Medications Morphine Sulfate 4 mg 4 mg PRN Q15MIN PRN IV/SQ PAIN GREATER THAN 3/10 Last administered on 08/18/16 01:58; Start 08/18/16 at 01:45; Stop 08/18/16 at 22:00 ; Status DC Sodium Chloride (Iv Sodium Chloride 0.9% 1000ml Bag) 1,000 ml @ 100 mls/hr Q10H IV Last administered on 08/18/16 01:59; Start 08/18/16 at 01:30; Stop at 11:29; Status DC Labetalol HCl (Normodyne) 20 mg 1X ONCE IVP Last administered on 08/18/16 01: 58; Start 08/18/16 at 01:45; Stop 08/18/16 at 01:46; Status DC Ondansetron HCl 4 mg 4 mg 1X ONCE IV Last administered on 08/18/16 01:58; Start 08/18/16 at 01:45; Stop 08/18/16 at 01:46; Status DC Nicardipine HCl/ Sodium Chloride (Cardene/Iv Sodium Chloride 0.9% 250ml) 270 ml @ 0 mls/hr CONT PRN IV SEE I/O RECORD Last administered on 08/18/16 07:17; Start 08/18/16 at 03:00; Stop 08/19/16 at 10:33; Status DC Ondansetron HCl (Zofran) 4 mg PRN Q8HRS PRN IV NAUSEA/VOMITING; Start 08/18/16 at 03:00; Stop 08/19/16 at 02:59; Status DC Morphine Sulfate 4 mg 4 mg PRN Q2HR PRN IV PAIN Last administered on 08/18/16 03:54; Start 08/18/16 at 03:00; Stop 08/19/16 at 02:59; Status DC Sodium Chloride (Iv Sodium Chloride 0.9% 1000ml Bag) 1,000 ml @ 0 mls/hr Q0M IV ; Start 08/18/16 at 03:00; Stop 08/19/16 at 02:59; Status DC Acetaminophen (Tylenol) 650 mg PRN Q4HRS PRN PO FEVER; Start 08/18/16 at 02:45 ; Stop 08/19/16 at 02:44; Status DC Potassium Chloride (Klor-Con) 40 meq 1X ONCE PO Last administered on 03:15; Start 08/18/16 at 03:15; Stop 08/18/16 at 03:16; Status DC Labetalol HCl (Trandate) 100 mg BID PO Last administered on 08/19/16 09:38; Start 08/18/16 at 21:00 Amlodipine Besylate (Norvasc) 10 mg DAILY PO Last administered on 08/19/16 09: 38; Start 08/19/16 at 09:00 Oxycodone/ Acetaminophen (Percocet 5/325) 1 tab PRN Q4HRS PRN PO PAIN Last administered on 08/18/16 12:22; Start 08/18/16 at 05:00 Lisinopril (Prinivil) 20 mg DAILY PO Last administered on 08/19/16 09:37; Start 08/18/16 at 09:00 Hydrochlorothiazide (Hydrodiuril) 50 mg DAILY PO Last administered on 09:37; Start 08/18/16 at 09:00 Amlodipine Besylate (Norvasc) 10 mg ONCE ONCE PO Last administered on 05:47; Start 08/18/16 at 05:45; Stop 08/18/16 at 05:46; Status DC Labetalol HCl (Trandate) 200 mg ONCE ONCE PO ; Start 08/18/16 at 05:45; Stop at 05:45; Status DC Labetalol HCl (Trandate) 100 mg ONCE ONCE PO Last administered on 08/18/16 05 :48; Start 08/18/16 at 05:45; Stop 08/18/16 at 05:46; Status DC Potassium Chloride (Klor-Con) 40 meq 1X ONCE PO Last administered on 09:29; Start 08/18/16 at 08:15; Stop 08/18/16 at 08:16; Status DC Aspirin (Ecotrin) 324 mg 1X ONCE PO ; Start 08/18/16 at 13:30; Stop 08/18/16 at 13:31; Status Cancel Aspirin (Ecotrin) 81 mg [id number] PO Last administered on 08/19/16 09:37; Start 08/19/16 at 08:00 Aspirin (Jessica Aspirin) 325 mg 1X ONCE PO Last administered on 08/18/16 16:37 ; Start 08/18/16 at 13:30; Stop 08/18/16 at 13:31; Status DC Nystatin 5 ml [id number] ; Start 08/18/16 at 22:00; Status Cancel Regadenoson (Lexiscan) 0.4 mg 1X ONCE IV Last administered on 08/19/16 08:00 ; Start 08/19/16 at 08:00; Stop 08/19/16 at 08:01; Status DC Potassium Chloride (Klor-Con) 40 meq 1X ONCE PO ; Start 08/19/16 at 13:15; Stop 08/19/16 at 13:16; Status UNV Active Scripts Active Reported Labetalol Hcl 100 Mg Tablet 100 Mg PO BID Hydrochlorothiazide Tablet (Hydrochlorothiazide) 50 Mg Tablet 50 Mg PO Amlodipine Besylate 10 Mg Tablet 10 Mg PO Lisinopril 20 Mg Tablet 20 Mg PO Vitals/I & O Vital Sign - Last 24 Hours 08/18/16 08/18/16 08/18/16 08/18/16 13:22 14:00 15:00 17:15 Temp 98.6 98.6 Pulse 92 86 84 Resp 18 B/P 136/92 139/86 129/74 Pulse Ox 96 96 96 99 O2 Delivery Room Air Room Air Room Air Room Air 08/18/16 08/18/16 08/18/16 08/18/16 18:38 18:39 19:40 19:50 Temp 98.5 98.5 Pulse 92 77 Resp 20 22 B/P 169/94 171/87 Pulse Ox 98 O2 Delivery Room Air Room Air Room Air Room Air 08/18/16 08/18/16 08/19/16 08/19/16 21:01 23:00 03:00 07:00 Temp 98.4 98.3 97.9 98.4 98.3 97.9 Pulse 77 82 85 81 Resp 18 16 16 B/P 171/87 150/87 152/95 176/104 Pulse Ox 98 94 95 O2 Delivery Room Air Room Air Room Air 08/19/16 08/19/16 08/19/16 08/19/16 09:37 09:38 09:38 11:14 Temp 98.2 98.2 Pulse 81 81 81 86 Resp 18 B/P 176/104 176/104 176/104 153/90 Pulse Ox 97 O2 Delivery Room Air Intake and Output 08/18/16 08/18/16 08/19/16 15:00 23:00 07:00 Intake Total 1550 ml Output Total 350 ml 525 ml Balance -350 ml 1025 ml CARISSA BUCK III DO Aug 19, 2016 13:20
--- NOTE | 2016-08-19 14:10 | RAD ---
APPROVED REPORT Test Type: Pharmacological Stress Nurse/Tech: Lita Luciano R.N. Test Indications: uncontrolled htn Cardiac History: Family history,htn, Medications: See Electronic Medical Record Medical History: See Electronic Medical Record Resting ECG: SR, w/BBB, inverted T waves in leads I,AVL, V2,5,6 Resting Heart Rate: 85 bpm Resting Blood Pressure: 167/105mmHg Pretest Chest Pain: No chest pain Nurse/Tech Notes S1S2, lungs CTA Consent: The procedure was explained to the patient in lay terms. Informed consent was witnessed. Lawrence eout was entered into [employer]. History and Stress Test performed by RT Sho (R) (N) Pharm. Details Pharmacologic stress testing was performed using 0.4mg per 5ml of regadenoson given intravenously ove r 7-10 seconds. Stress Symptoms Dyspnea, some chest pressure over left shoulder area and down left arm. scale 3/10 which did decrease to a 1/10 by the end of recovery period. pt stated that this pain was different then the pain he cam e in for. POST EXERCISE Reason for Termination: Infusion complete Max HR: 102 bpm Max Blood Pressure: 167/96mmHg Blood Pressure response to exercise: b/p started elevated and remained that way throughout Heart Rate response to exercise: wnl Chest Pain: Yes. see above note Arrhythmia: No. ST Change: No. INTERPRETATION Stress EKG Conclusion: No evidence of stress induce EKG changes. Imaging Protocol IMAGE PROTOCOL: Rest Tc-99m/stress Tc-99m 1 day Rest: Stress: Viability: Radiopharm.Tc99m [id number] Sestamibi Pvmj92hWw 36mCi Img Date 08/19/2016 08/19/2016 Inj-Img [id number]. 90min. Rest Admin Site:IV - Left AntecubitalAdministrator:DEBI Smith, ARRT (R)(N) Stress Admin Site: IV - Left AntecubitalAdministrator: RT Sho (R)(N) STRESS DATA End Diast. Vol.178.0mlAv. Heart Rate84.0bpm End Syst. Vol.87.0mlCO Index BSA7.6L/min Myocardial Udlv131.0gEject. Ytwaqkrq58.0% Stress Rates Pk. Fill Rate2.66EDV/secLVtime Pk. Fill 183.19msec Pk. Empty Rate2.93ESV/secLVtime Pk. Eject68.71msec 08/03 Pk. Fill0.90EDV/sec Stress Scores Regional WT2.00Summed WT27.00 Regional WM0.00Summed WM8.00 The rest and stress images show normal perfusion, normal contraction and thickening. LV Perf. Quant 17 Seg. SSS0.00 17 Seg. SRS0.00 17 Seg. SDS0.00 Stress Defect Extent (% LAD)0.00Rest Defect Extent (% LAD)0.00Rev. Defect Extent (% LAD)0.00 Stress Defect Extent (% LCX) 0.00Rest Defect Extent (% LCX)0.00Rev. Defect Extent (% LCX)0.00 Stress Defect Extent (% RCA)0.00Rest Defect Extent (% RCA)0.00Rev. Defect Extent (% RCA)0.00 Stress Defect Extent (% INES)0.00Rest Defect Extent (% INES)0.00Rev. Defect Extent (% INES)0.00 Other Information Quality:Good Risk Assessment: Low Risk Conclusion 1. No evidence of stress induced EKG changes. 2. Normal myocardial perfusion at stress/rest 3. Low normal EF at 50% 4. Low risk study
[2016-08-19 14:43] VITALS: BP 158/94
[2016-08-19] MEDS ORDERED: HYDR-2678 PO (15:55)
[2016-08-19] MEDS ORDERED: HYDROCODONE/APAP 5/325MG TABLET. PO PRN (16:00)
--- NOTE | 2016-08-19 16:13 | ACF ---
Admission Forms Criteria HYPERTENSION Clinical Indications for Admission to Inpatient Care ( Place "X" for any and all applicable criteria): Admission is indicated for ANY ONE of the following(1)(2)(3)(4): [ ]I. Hypertensive emergency, with evidence of acute and progressing target organ disease as indicated by ANY ONE of the following: [ ]a) Hypertensive encephalopathy (eg, confusion, altered mental status) [ ]b) Cerebral infarction [ ]c) Intracranial hemorrhage [ ]d) Myocardial ischemia or infarction [ ]e) Pulmonary edema [ ]f) Aortic dissection [ ]g) Seizure [ ]h) Acute renal insufficiency [ ]i) Papilledema [ ]j) Microangiopathic hemolytic anemia [ ]II. Adrenergic crisis (eg, severe hypertension due to pheochromocytoma crisis, cocaine or amphetamine intoxication, or clonidine withdrawal) [X ]III. Severe hypertension (SBP greater than 180 mmHg or DBP greater than 110 mmHg or greater than the 95th percentile for age, gender, and height in pediatric patients) that cannot be controlled (eg, to SBP less than 160 mmHg and DBP less than 100 mmHg in adults) by treatment with oral medication in emergency department or observation care Extended stay beyond goal length of stay may be needed for(11)(12)(13): [ ]a) Persistent hypertensive encephalopathy [ ]b) Continuation of pulmonary edema [ ]c) Recurring or persistent severe hypertension [ ]d) Target organ damage (eg, angina, stroke, aortic dissection) [ ]e) Associated renal insufficiency The original [email or web address] content created by [employer] has been revised. The portions of the content which have been revised are identified through the use of italic text or in bold, and [facility] has neither reviewed nor approved the modified material. All other unmodified content is copyright [facility]. Please see references footnoted in the original [email or web address] edition 2016 Admission Criteria Met?: Yes MIKE SCHNEIDER Aug 19, 2016 16:13
--- NOTE | 2016-08-23 23:17 | DS ---
DATE OF DISCHARGE: 08/19/2016 ADMISSION DIAGNOSIS: Accelerated hypertension. DISCHARGE DIAGNOSIS: Resolving accelerated hypertension. HOSPITAL COURSE: The patient is a pleasant 61-year-old male who is noncompliant with his meds, basically presented with accelerated hypertension, was admitted. We gave him IV Cardene, then changed him to p.o. meds. He is now back to his baseline. We plan to discharge. DISPOSITION: Home. ACTIVITY: As tolerated. DIET: Low sodium. MEDICATIONS: Please see the MRAD. TOTAL TIME: 32 minutes. CARISSA BUCK DO DR: GIANNI/addie JOB#: [id number] / [id number]
== END 2016-08-19 17:00 | disposition home or self-care (01) | DRG 392 ==
LOC: ER 00:56 → 1 WEST ICU 02:38 → 2 SOUTH 17:18
PROVIDERS: ADMIT Internal Medicine Hematology & Oncology; ATTEND Internal Medicine Hematology & Oncology
DX: K21.9 Gastro-esophageal reflux disease without esophagitis (principal); I11.9 Hypertensive heart disease without heart failure; E87.6 Hypokalemia; W19.XXXA Unspecified fall, initial encounter; Z82.3 Family history of stroke; Z82.49 Family history of ischemic heart disease and other diseases of the circulatory system; Z86.73 Personal history of transient ischemic attack (TIA), and cerebral infarction without residual deficits; Z91.14 Patient's other noncompliance with medication regimen; Z91.19 Patient's noncompliance with other medical treatment and regimen
CPT/HCPCS: 36415; 71010; 73630; 78452; 80048; 80061; 83735; 84443; 84484; 85027; 87641; 93005; 93017; 93306; 96361; 96374; 96375; 96376; A9500; J2270; J2405; J2785; J3490; J7030; J7050; 99291-25

== ENCOUNTER 2017-03-02 01:59 | Inpatient (IN) | payer MEDICARE ==
[~2017-03-02] VITALS: Ht 185.4 cm; Wt 99.8 kg
[~2017-03-02 01:59] MED LIST changes: +CARV12.52 PO; +HYDR-2678 PO; +HYDR25TA9 PO; +LABE100T3 PO; +LISI40TA PO
[2017-03-02 02:56] LABS: BASO % 1 % (0-3); EOS % 3 % (0-3); HEMATOCRIT 40.1 % (39.0-53.0); HEMOGLOBIN 13.8 g/dL (13.0-17.5); LYMPH # 1.5 x10^3/uL (1.0-4.8); LYMPH % 28 % (24-48); MEAN CORPUSCULAR HEMOGLOBIN 31 pg (25-35); MEAN CORPUSCULAR HGB CONC 34 g/dL (31-37); MEAN CORPUSCULAR VOLUME 91 fL (79-100); MONO % 8 % (0-9); NEUT % 60 % (31-73); PLATELET COUNT 263 x10^3/uL (140-400); RED CELL DISTRIBUTION WIDTH 13.7 % (11.5-14.5); WHITE BLOOD COUNT 5.3 x10^3/uL (4.0-11.0)
[2017-03-02 02:59] LABS: BILIRUBIN,URINE NEGATIVE (NEG); GLUCOSE,URINE NEGATIVE (NEG); NITRITE,URINE NEGATIVE (NEG); PROTEIN,URINE NEGATIVE (NEG-TRACE)
[2017-03-02 03:06] LABS: PROTHROMBIN TIME PATIENT 12.4 SEC (11.7-14.0)
[2017-03-02 03:07] LABS: BARBITURATES NEG (NEG); BENZODIAZEPINES POS (NEG); CANNABINOIDS NEG (NEG); COCAINE POS (NEG); METHADONE NEG (NEG); OPIATES NEG (NEG); PHENCYCLIDINE NEG (NEG)
[2017-03-02 03:08] LABS: CALCIUM 9.3 mg/dL (8.5-10.1); CREATININE 1.7 mg/dL (0.7-1.3); GFR 49.7; POTASSIUM 3.1 mmol/L (3.5-5.1)
[2017-03-02 03:10] LABS: BACTERIA,URINE FEW /HPF (0-FEW); SQUAMOUS EPITHELIAL CELL,UR OCC /LPF
[2017-03-02 03:14] LABS: ALBUMIN 3.8 g/dL (3.4-5.0); TOTAL BILIRUBIN 0.2 mg/dL (0.2-1.0); TOTAL PROTEIN 7.7 g/dL (6.4-8.2)
--- NOTE | 2017-03-02 03:31 | RAD ---
CT head without contrast TECHNIQUE: 5 mm axial noncontrast imaging skull base to vertex. HISTORY: Slurred speech for 3 days, ataxia. FINDINGS: No intracranial hemorrhage, mass, hydrocephalus, extra-axial fluid collections or cortical infarction. Subcentimeter hypodense lesion of the right basal ganglia lentiform nucleus image 15 could represent an age-indeterminate lacunar infarct. Mild cerebral periventricular white matter hypodensity likely mild changes of chronic microvascular ischemic injury. Orbits, mastoids, paranasal sinuses and bones are unremarkable. IMPRESSION: Age-indeterminate small subcentimeter right basal ganglia lacunar infarct. Exposure: One or more of the following individualized dose reduction techniques were utilized for this examination: 1. Automated exposure control 2. Adjustment of the mA and/or kV according to patient size 3. Use of iterative reconstruction technique Electronically signed by: Aman Ferrera MD (03/02/2017 3:27 AM) [facility]
[2017-03-02 04:30] VITALS: BP 153/99
--- NOTE | 2017-03-02 04:51 | PHYS DOC ---
Past Medical History Past Medical History: Hypertension, Other Additional Past Medical Histor: vertigo Past Surgical History: Other Additional Past Surgical Histo: back surgery Alcohol Use: Heavy Drug Use: None Adult General Chief Complaint Chief Complaint: WEAKNESS/GENERALIZED HPI HPI Patient is a 61 year old male who presents with neurologic symptoms. The patient states he was just released from 2-night incarceration. He & his family state that his speech has been slurred & his gait has been unsteady since time he was released from snf 2 days ago. He denies trauma. He denies fevers/chills, facial droop, vision changes, chest pain, shortness of breath, extremity numbness/weakness. He has history of HTN, states he was receiving unfamiliar medications while incarcerated. He smokes cigarettes daily. Does not have a PCP. Is accompanied by his 2 daughters. Review of Systems Review of Systems Constitutional: Denies fever or chills Eyes: Denies change in visual acuity HENT: Denies nasal congestion or sore throat Respiratory: Denies cough or shortness of breath Cardiovascular: Denies chest pain or edema GI: Denies abdominal pain, nausea, vomiting, bloody stools or diarrhea : Denies dysuria or hematuria Musculoskeletal: Denies back pain or joint pain Integument: Denies rash or skin lesions Neurologic: Reports slurred speech & ataxia. Denies headache, focal weakness or sensory changes Allergies Allergies Allergies Coded Allergies Type Severity Reaction Last Updated Verified No Known Drug Allergies 09/10/13 No Physical Exam Physical Exam Constitutional: Well developed, well nourished, no acute distress, non-toxic appearance. HENT: Normocephalic, atraumatic, bilateral external ears normal, oropharynx moist, nose normal. Eyes: PERRLA, EOMI, conjunctiva normal, no discharge. Neck: supple, no stridor. Cardiovascular: RRR, no murmurs, no edema. Lungs & Thorax: LCTAB, no wheezing, no respiratory distress. Abdomen: soft, nontender, nondistended. Skin: Warm, dry, no erythema, no rash. Back: No tenderness. Extremities: No tenderness, no edema. Neurologic: Alert and oriented X 3, CN2-12 grossly intact, symmetric strength/ sensation to UE & LE, intact finger to nose & heel to carranza, no palmar drift, no focal deficits noted. Psychologic: Affect normal, judgement normal, mood normal. Current Patient Data Vital Signs Vital Signs Date Time Temp Pulse Resp B/P (MAP) Pulse Ox O2 Delivery O2 Flow Rate FiO2 03/02/17 04:00 84 19 165/94 (117) 94 Room Air 03/02/17 02:10 97.5 97.5 Lab Values Laboratory Tests Test 03/02/17 02:05 03/02/17 02:52 White Blood Count 5.3 x10^3/uL (4.0-11.0) Red Blood Count 4.40 x10^6/uL (4.30-5.70) Hemoglobin 13.8 g/dL (13.0-17.5) Hematocrit 40.1 % (39.0-53.0) Mean Corpuscular Volume 91 fL (79-100) Mean Corpuscular Hemoglobin 31 pg (25-35) Mean Corpuscular Hemoglobin Concent 34 g/dL (31-37) Red Cell Distribution Width 13.7 % (11.5-14.5) Platelet Count 263 x10^3/uL (140-400) Neutrophils (%) (Auto) 60 % (31-73) Lymphocytes (%) (Auto) 28 % (24-48) Monocytes (%) (Auto) 8 % (0-9) Eosinophils (%) (Auto) 3 % (0-3) Basophils (%) (Auto) 1 % (0-3) Neutrophils # (Auto) 3.2 x10^3uL (1.8-7.7) Lymphocytes # (Auto) 1.5 x10^3/uL (1.0-4.8) Monocytes # (Auto) 0.4 x10^3/uL (0.0-1.1) Eosinophils # (Auto) 0.2 x10^3/uL (0.0-0.7) Basophils # (Auto) 0.0 x10^3/uL (0.0-0.2) Prothrombin Time 12.4 SEC (11.7-14.0) Prothrombin Time INR 1.0 (0.8-1.1) PTT 42 SEC (24-38) H Sodium Level 148 mmol/L (136-145) H Potassium Level 3.1 mmol/L (3.5-5.1) L Chloride Level 109 mmol/L (98-107) H Carbon Dioxide Level 28 mmol/L (21-32) Anion Gap 11 (6-14) Blood Urea Nitrogen 28 mg/dL (8-26) H Creatinine 1.7 mg/dL (0.7-1.3) H Estimated GFR (Cockcroft-Gault) 49.7 BUN/Creatinine Ratio 16 (6-20) Glucose Level 107 mg/dL (70-99) H Calcium Level 9.3 mg/dL (8.5-10.1) Total Bilirubin 0.2 mg/dL (0.2-1.0) Aspartate Amino Transferase (AST) 21 U/L (15-37) Alanine Aminotransferase (ALT) 26 U/L (16-63) Alkaline Phosphatase 68 U/L (46-116) Troponin I Quantitative < 0.017 ng/mL (0.000-0.055) UB-Hqj-V-Type Natriuretic Peptide 56 pg/mL (0-124) Total Protein 7.7 g/dL (6.4-8.2) Albumin 3.8 g/dL (3.4-5.0) Albumin/Globulin Ratio 1.0 (1.0-1.7) Ethyl Alcohol Level 29 mg/dL (0-10) H Urine Collection Type Unknown Urine Color Yellow Urine Clarity Clear Urine pH 6.0 Urine Specific [place] 1.020 Urine Protein Negative mg/dL (NEG-TRACE) Urine Glucose (UA) Negative mg/dL (NEG) Urine Ketones (Stick) Negative mg/dL (NEG) Urine Blood Negative (NEG) Urine Nitrite Negative (NEG) Urine Bilirubin Negative (NEG) Urine Urobilinogen Dipstick 1.0 mg/dL (0.2 mg/dL) Urine Leukocyte Esterase Negative (NEG) Urine RBC 3-5 /HPF (0-2) Urine WBC 5-10 /HPF (0-4) Urine Squamous Epithelial Cells Occ /LPF Urine Bacteria Few /HPF (0-FEW) Urine Hyaline Casts Many /HPF Urine Mucus Marked /LPF Urine Opiates Screen Neg (NEG) Urine Methadone Screen Neg (NEG) Urine Barbiturates Neg (NEG) Urine Phencyclidine Screen Neg (NEG) Urine Amphetamine/Methamphetamine Neg (NEG) Urine Benzodiazepines Screen Pos (NEG) Urine Cocaine Screen Pos (NEG) Urine Cannabinoids Screen Neg (NEG) Urine Ethyl Alcohol Pos (NEG) Laboratory Tests 03/02/17 02:05 Laboratory Tests 03/02/17 02:05 EKG EKG interpreted by me: Normal sinus rhythm rate 87, no acute ST or T wave changes, normal intervals, no ectopy. [] Radiology/Procedures Radiology/Procedures CXR: interpreted by me: cardiac/aortic silhouette stable from previous study , no infiltrate, no pneumothorax. no acute process. PROCEDURE: CT HEAD WO CONTRAST CT head without contrast TECHNIQUE: 5 mm axial noncontrast imaging skull base to vertex. HISTORY: Slurred speech for 3 days, ataxia. FINDINGS: No intracranial hemorrhage, mass, hydrocephalus, extra-axial fluid collections or cortical infarction. Subcentimeter hypodense lesion of the right basal ganglia lentiform nucleus image 15 could represent an age-indeterminate lacunar infarct. Mild cerebral periventricular white matter hypodensity likely mild changes of chronic microvascular ischemic injury. Orbits, mastoids, paranasal sinuses and bones are unremarkable. IMPRESSION: Age-indeterminate small subcentimeter right basal ganglia lacunar infarct. Exposure: One or more of the following individualized dose reduction techniques were utilized for this examination: 1. Automated exposure control 2. Adjustment of the mA and/or kV according to patient size 3. Use of iterative reconstruction technique Electronically signed by: Aman Ferrera MD (03/02/2017 3:27 AM) [facility] DICTATED and SIGNED BY: AMAN FERRERA MD DATE: 03/02/17 0323[] Course & Med Decision Making Course & Med Decision Making Pertinent Labs and Imaging studies reviewed. (See chart for details) The patient presents with neurologic symptoms. NIH is 0. Obtained labs, EKG, CXR, CT head. Found to have lacunar infarct on CT. Aspirin administered. Recommended admission to the hospital for further evaluation & treatment. The patient refused admission. Discussed risks of leaving including worsening condition, undiagnosed condition, possibly . He voices understanding & still wishes to depart against medical advice. He left the hospital against recommendations by this physician [] Dragon Disclaimer Dragon Disclaimer This electronic medical record was generated, in whole or in part, using a voice recognition dictation system. Departure Departure Impression: Primary Impression: Ischemic stroke Disposition: AGAINST MEDICAL ADVICE Condition: STABLE ELIAS NICOLAS MD Mar 02, 2017 04:51
--- NOTE | 2017-03-02 07:15 | RAD ---
Portable chest, 03/02/2017: History: Slurred speech, neurologic symptoms Comparison is made to a study from 01/22/2017. The heart is at the upper limits of normal in size. There is tortuosity of the thoracic aorta. The pulmonary vascularity is normal. No pulmonary infiltrates are seen. There is no evidence of pleural fluid. IMPRESSION: No acute cardiopulmonary abnormality is detected.
--- NOTE | 2017-03-02 12:04 | EKG ---
[facility] [address] [place] [address] Test Date: 2017-03-02 Test Time: 02:42:46 Pat Name: HANG SOLIS Department: Room: [facility] Gender: M Queen'S Counsel: : 1955 Requested By: ELIAS NICOLAS Order Number: [id number] Reading MD: Ho Del Cid Measurements Intervals T[place] Rate: 87 P: 41 ND: 172 QRS: -47 QRSD: 100 T: 57 QT: 372 QTc: 448 Interpretive Statements SINUS RHYTHM ABNORMAL LEFT AXIS DEVIATION R-S TRANSITION ZONE IN V LEADS DISPLACED TO THE LEFT LEFT ANTERIOR FASCICULAR BLOCK INCOMPLETE RIGHT BUNDLE BRANCH BLOCK ABNORMAL ECG RI6.01 Compared to ECG 01/24/2017 07:14:57 Left anterior fascicular block now present Incomplete right bundle-branch block now present T-wave abnormality no longer present Electronically Signed On 03-03-2017 15:40:50 CDT by Ho Del Cid
[2017-03-02] MEDS ORDERED: HYDR50TA6 PO (18:22)
[2017-03-02] MEDS ORDERED: ASPI-482 PO (18:24)
--- NOTE | 2017-03-03 04:18 | ACF ---
Admission Forms Criteria STROKE: ISCHEMIC Clinical Indications for Admission to Inpatient Care (Place 'X' for any and all applicable criteria): Admission is indicated for ANY ONE of the following(1)(2)(3)(4): [X]I. Acute stroke Extended stay beyond goal length of stay may be needed for(1)(2) [ ]a) Major deficit or clinical deterioration [ ]b) Hospital-acquired infection (eg, urinary tract infection, pneumonia) [ ]c) Embolic cause of stroke [ ]d) Venous thromboembolism(9) [ ]e) Seizures [ ]f) Bleeding (eg, cerebral) [ ]g) Increased intracranial pressure [ ]h) Comorbidities [ ]i) Surgical intervention The original [employer] content created by [employer] has been revised. The portions of the content which have been revised are identified through the use of italic text or in bold, and [facility] has neither reviewed nor approved the modified material. All other unmodified content is copyright [employer]. Please see references footnoted in the original [facility] [employer] edition 2016 Admission Criteria Met?: Yes ALEKSEY LEO Mar 03, 2017 04:18
== END 2017-03-02 07:00 | disposition left against medical advice (07) | DRG 66 ==
LOC: ER 01:59 → 6 SOUTH 04:14
PROVIDERS: ADMIT Psychiatry & Neurology Neurology; ATTEND Psychiatry & Neurology Neurology
DX: I63.9 Cerebral infarction, unspecified (principal); F17.210 Nicotine dependence, cigarettes, uncomplicated; I10 Essential (primary) hypertension; Z72.89 Other problems related to lifestyle
CPT/HCPCS: 36415; 70450; 71010; 80053; 80307; 81001; 83880; 84484; 85027; 85610; 85730; 87086; 93005; 99285; G0480; G0479

== ENCOUNTER 2018-02-24 10:11 | Emergency (ER) | payer MEDICARE ==
[2018-02-24] MEDS: DEXAMETHASONE SOD PHOS 20 MG/5 ML VIAL. IM (11:08)
[2018-02-24] MEDS: ORPHENADRINE CITRATE 60 MG/2 ML VIAL. IM (11:08)
== END 2018-02-24 11:30 | disposition home or self-care (01) ==
LOC: ER 10:11
DX: M43.6 Torticollis (principal); M25.512 Pain in left shoulder; I10 Essential (primary) hypertension; Z86.73 Personal history of transient ischemic attack (TIA), and cerebral infarction without residual deficits
CPT/HCPCS: 93005; 96372; 99284; J1100; J2360

== ENCOUNTER 2019-03-11 16:30 | Emergency (ER) | payer MEDICARE, OTHER ==
[~2019-03-11] VITALS: Ht 185.4 cm; Wt 104.3 kg
[~2019-03-11 16:30] MED LIST changes: -AMLO10TA2 PO; +AMLO10TA8 PO; +ASPI-482 PO; +ATOR20TA58 PO; +CARV12.511 PO; -CARV12.52 PO; +HYDR-2145 PO; -HYDR25TA9 PO; +IBUP-1060 PO; +ISOS60TA2 PO; -LABE100T3 PO; +LABE100T5 PO; +LISI-130 PO; -LISI40TA PO; +METO100T7 PO; +ORPH100T PO; +TRAM50TA PO
[2019-03-11] MEDS ORDERED: MORPHINE SULFATE 4 MG/ML VIAL. IV/SQ PRN (17:30)
[2019-03-11 17:43] LABS: BASO % 1 % (0-3); EOS # 0.2 x10^3/uL (0.0-0.7); EOS % 4 % (0-3); HEMATOCRIT 39.9 % (39.0-53.0); HEMOGLOBIN 14.1 g/dL (13.0-17.5); LYMPH # 1.6 x10^3/uL (1.0-4.8); LYMPH % 32 % (24-48); MEAN CORPUSCULAR HEMOGLOBIN 32 pg (25-35); MEAN CORPUSCULAR HGB CONC 35 g/dL (31-37); MEAN CORPUSCULAR VOLUME 90 fL (79-100); MONO # 0.4 x10^3/uL (0.0-1.1); MONO % 8 % (0-9); NEUT # 2.8 x10^3/uL (1.8-7.7); NEUT % 56 % (31-73); PLATELET COUNT 288 x10^3/uL (140-400); RED BLOOD COUNT 4.42 x10^6/uL (4.30-5.70); RED CELL DISTRIBUTION WIDTH 13.5 % (11.5-14.5)
[2019-03-11 17:55] LABS: CALCIUM 8.6 mg/dL (8.5-10.1); CREATININE 1.2 mg/dL (0.7-1.3); GFR 73.5; POTASSIUM 3.6 mmol/L (3.5-5.1)
[2019-03-11] MEDS ORDERED: ASPIRIN 325 MG TABLET PO ONE (18:00)
[2019-03-11 18:01] LABS: ALBUMIN 3.6 g/dL (3.4-5.0); ALBUMIN/GLOBULIN RATIO 0.9 (1.0-1.7); TOTAL BILIRUBIN 0.5 mg/dL (0.2-1.0); TOTAL PROTEIN 7.7 g/dL (6.4-8.2)
[2019-03-11 18:08] LABS: BARBITURATES NEG (NEG); BENZODIAZEPINES NEG (NEG); CANNABINOIDS NEG (NEG); COCAINE NEG (NEG); METHADONE NEG (NEG); OPIATES NEG (NEG); PHENCYCLIDINE NEG (NEG)
[2019-03-11 18:12] LABS: AMPHETAMINE/METHAMPHETAMINE NEG (NEG)
[2019-03-11 19:00] VITALS: BP 172/113
--- NOTE | 2019-03-11 19:04 | RAD ---
AP portable chest radiograph 03/11/2019 Clinical History: Left-sided chest pain. An AP erect portable digital radiograph of the chest was obtained. Comparison study is dated 05/11/2017. The patient is rotated to the right. The cardiac silhouette is mildly enlarged. The thoracic aorta is tortuous. No acute pulmonary infiltrate is seen. No pleural effusion or pneumothorax is noted. Degenerative changes are seen involving the thoracic spine. IMPRESSION: No acute abnormality is seen. Electronically signed by: Anders Samayoa MD (03/11/2019 7:02 PM) [facility]
--- NOTE | 2019-03-11 19:38 | PHYS DOC ---
Past Medical History Past Medical History: CVA, Hypertension, Other Additional Past Medical Histor: vertigo Past Surgical History: Other Additional Past Surgical Histo: back surgery Alcohol Use: Heavy Drug Use: None Adult General Chief Complaint Chief Complaint: SHOULDER INJURY HPI HPI Patient is a 64 year old male with history of CVA, hypertension, who presents to the ED today complaining of 6 out of 10 left lateral neck pain, radiating to the left upper extremity that he states is chronic and has been told he will need surgery for but got worse in the last 2 days. Patient states he also feels tired/fatigue for the last 2 days. Patient states he did some weed wacking yesterday and this could've triggered this pain. He states this pain usually comes on and off for years. He states he typically takes ibuprofen which clears the pain for 2 days. He states he has not taken the ibuprofen for a couple days. Patient denies any chest pain. Denies any shortness of breath. Review of Systems Review of Systems Constitutional: Denies fever or chills [] Eyes: Denies change in visual acuity, redness, or eye pain [] HENT: Denies nasal congestion or sore throat [] Respiratory: Denies cough or shortness of breath [] Cardiovascular: No additional information not addressed in HPI [] GI: Denies abdominal pain, nausea, vomiting, bloody stools or diarrhea [] : Denies dysuria or hematuria [] Musculoskeletal: Reports left shoulder pain, left lateral neck pain. Integument: Denies rash or skin lesions [] Neurologic: Reports fatigue.Denies headache, focal weakness or sensory changes [] All other systems were reviewed and found to be within normal limits, except as documented in this note. Current Medications Current Medications Current Medications Medications (Trade) Dose Ordered Sig/[facility] Start Time Stop Time Status Last Admin Dose Admin Aspirin (Jessica Aspirin) 325 mg 1X ONCE 03/11/19 18:00 03/11/19 18:01 DC 03/11/19 18:00 325 MG Morphine Sulfate (Morphine Sulfate) 4 mg PRN Q15MIN PRN 03/11/19 17:30 03/12/19 17:29 Allergies Allergies Allergies Coded Allergies Type Severity Reaction Last Updated Verified No Known Drug Allergies 05/11/17 No Physical Exam Physical Exam Constitutional: Well developed, well nourished, no acute distress, non-toxic appearance. [] HENT: Normocephalic, atraumatic, bilateral external ears normal, oropharynx moist, no oral exudates, nose normal. [] Eyes: PERRLA, EOMI, conjunctiva normal, no discharge. [] Neck: Normal range of motion, no tenderness, supple, no stridor. [] Cardiovascular:Heart rate regular rhythm, no murmur [] Lungs & Thorax: Bilateral breath sounds clear to auscultation [] Abdomen: Bowel sounds normal, soft, no tenderness, no masses, no pulsatile masses. [] Skin: Warm, dry, no erythema, no rash. [] Back: No tenderness, no CVA tenderness. [] Extremities: No tenderness, no cyanosis, no clubbing, ROM intact, no edema. [] Neurologic: Alert and oriented X 3, normal motor function, normal sensory function, no focal deficits noted. [] Psychologic: Affect normal, judgement normal, mood normal. [] Current Patient Data Vital Signs Vital Signs Date Time Temp Pulse Resp B/P (MAP) Pulse Ox O2 Delivery O2 Flow Rate FiO2 03/11/19 19:00 70 172/113 (132) 98 Room Air 03/11/19 17:30 98.7 18 98.7 Lab Values Laboratory Tests Test 03/11/19 17:38 03/11/19 17:45 White Blood Count 5.0 x10^3/uL (4.0-11.0) Red Blood Count 4.42 x10^6/uL (4.30-5.70) Hemoglobin 14.1 g/dL (13.0-17.5) Hematocrit 39.9 % (39.0-53.0) Mean Corpuscular Volume 90 fL (79-100) Mean Corpuscular Hemoglobin 32 pg (25-35) Mean Corpuscular Hemoglobin Concent 35 g/dL (31-37) Red Cell Distribution Width 13.5 % (11.5-14.5) Platelet Count 288 x10^3/uL (140-400) Neutrophils (%) (Auto) 56 % (31-73) Lymphocytes (%) (Auto) 32 % (24-48) Monocytes (%) (Auto) 8 % (0-9) Eosinophils (%) (Auto) 4 % (0-3) H Basophils (%) (Auto) 1 % (0-3) Neutrophils # (Auto) 2.8 x10^3/uL (1.8-7.7) Lymphocytes # (Auto) 1.6 x10^3/uL (1.0-4.8) Monocytes # (Auto) 0.4 x10^3/uL (0.0-1.1) Eosinophils # (Auto) 0.2 x10^3/uL (0.0-0.7) Basophils # (Auto) 0.0 x10^3/uL (0.0-0.2) Sodium Level 142 mmol/L (136-145) Potassium Level 3.6 mmol/L (3.5-5.1) Chloride Level 107 mmol/L (98-107) Carbon Dioxide Level 22 mmol/L (21-32) Anion Gap 13 (6-14) Blood Urea Nitrogen 20 mg/dL (8-26) Creatinine 1.2 mg/dL (0.7-1.3) Estimated GFR (Cockcroft-Gault) 73.5 BUN/Creatinine Ratio 17 (6-20) Glucose Level 97 mg/dL (70-99) Calcium Level 8.6 mg/dL (8.5-10.1) Magnesium Level 2.0 mg/dL (1.8-2.4) Total Bilirubin 0.5 mg/dL (0.2-1.0) Aspartate Amino Transferase (AST) 23 U/L (15-37) Alanine Aminotransferase (ALT) 24 U/L (16-63) Alkaline Phosphatase 67 U/L (46-116) Creatine Kinase 208 U/L (39-308) Creatine Kinase MB (Mass) 1.8 ng/mL (0.0-3.6) Creatine Kinase MB Relative Index 0.9 % (0-4) Troponin I Quantitative < 0.017 ng/mL (0.000-0.055) NA-Vnp-J-Type Natriuretic Peptide 114 pg/mL (0-124) Total Protein 7.7 g/dL (6.4-8.2) Albumin 3.6 g/dL (3.4-5.0) Albumin/Globulin Ratio 0.9 (1.0-1.7) L Thyroid Stimulating Hormone (TSH) 1.004 uIU/mL (0.358-3.74) Urine Opiates Screen Neg (NEG) Urine Methadone Screen Neg (NEG) Urine Barbiturates Neg (NEG) Urine Phencyclidine Screen Neg (NEG) Urine Amphetamine/Methamphetamine Neg (NEG) Urine Benzodiazepines Screen Neg (NEG) Urine Cocaine Screen Neg (NEG) Urine Cannabinoids Screen Neg (NEG) Urine Ethyl Alcohol Neg (NEG) Laboratory Tests 03/11/19 17:38 Laboratory Tests 03/11/19 17:38 EKG EKG [address] Marina sinus rhythm HR 71 no STEMI Radiology/Procedures Radiology/Procedures []PROCEDURE: PORTABLE CHEST 1V AP portable chest radiograph 03/11/2019 Clinical History: Left-sided chest pain. An AP erect portable digital radiograph of the chest was obtained. Comparison study is dated 05/11/2017. The patient is rotated to the right. The cardiac silhouette is mildly enlarged. The thoracic aorta is tortuous. No acute pulmonary infiltrate is seen. No pleural effusion or pneumothorax is noted. Degenerative changes are seen involving the thoracic spine. IMPRESSION: No acute abnormality is seen. Electronically signed by: Anders Hernández MD (03/11/2019 7:02 PM) [facility] DICTATED and SIGNED BY: ANDERS HERNÁNDEZ MD DATE: 03/11/191901 Course & Med Decision Making Course & Med Decision Making Pertinent Labs and Imaging studies reviewed. (See chart for details) This is a 64-year-old male patient presenting to the ED today with left lateral neck pain and left shoulder pain for 2 days. Patient states this pain is chronic in nature just got worse in the last 2 days after weed waking. Cardiac workup is negative. Discharged to home. He will follow-up with his own doctor in one week. Dragon Disclaimer Dragon Disclaimer This electronic medical record was generated, in whole or in part, using a voice recognition dictation system. Departure Departure Impression: Primary Impression: Cervical radiculopathy Additional Impression: Shoulder pain, left Disposition: 01 HOME, SELF-CARE Condition: STABLE Referrals: UNKNOWN PCP NAME (PCP) Follow-up with your doctor in 1-2 weeks Patient Instructions: Cervical Radiculopathy, [id number], Shoulder Pain, [id number] Additional Instructions: You were evaluated in the emergency room, your workup was negative for any acute findings. Please follow-up with your doctor in the course of this week or next week. Problem Qualifiers Additional Impression: Shoulder pain, left Chronicity: acute Qualified Codes: M25.512 - Pain in left shoulder TODD JONES KG Mar 11, 2019 19:38
--- NOTE | 2019-03-12 06:36 | EKG ---
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
== END 2019-03-11 20:15 | disposition home or self-care (01) ==
LOC: ER 16:30
DX: M54.12 Radiculopathy, cervical region (principal); M25.512 Pain in left shoulder; I10 Essential (primary) hypertension; Z86.73 Personal history of transient ischemic attack (TIA), and cerebral infarction without residual deficits; F10.20 Alcohol dependence, uncomplicated; Y90.9 Presence of alcohol in blood, level not specified
CPT/HCPCS: 36415; 71045; 80053; 80307; 82553; 83735; 83880; 84443; 84484; 85025; 93005; 99285-25

== ENCOUNTER 2020-08-19 13:25 | Emergency (ER) | payer MEDICARE ==
[~2020-08-19] VITALS: Ht 185.4 cm; Wt 99.0 kg
[~2020-08-19 13:25] MED LIST changes: +AMLO-187 PO; -AMLO10TA8 PO; +ASCO500T4 PO; +CHOL500051 PO; +ZINC220C2 PO
--- NOTE | 2020-08-19 14:48 | RAD ---
CT HEAD/BRAIN WO History: Reason: ALTERED MENTAL STATUS / Spl. Instructions: / History: Comparison: May 11, 2017 Technique: Noncontrast CT imaging was performed of the head. Exposure: One or more of the following individualized dose reduction techniques were utilized for thi s examination: 1. Automated exposure control 2. Adjustment of the mA and/or kV according to patient size 3. Use of iterative reconstruction technique. Findings: No intracranial hemorrhage. No mass effect. No hydrocephalus. Mild brain parenchymal volume loss. Mild foci of decreased attenuation within the hemispheric white m atter, most often due to chronic microvascular ischemia. Imaged orbits are unremarkable. Imaged paranasal sinuses and mastoid air cells are clear. No acute ca lvarial fracture. Impression: 1. No acute intracranial abnormality. Electronically signed by: Adiel Roman DO (08/19/2020 2:46 PM) [id number]
[2020-08-19 15:58] VITALS: BP 118/80
[2020-08-19 16:22] LABS: BASO % 1 % (0-3); EOS # 0.1 x10^3/uL (0.0-0.7); EOS % 2 % (0-3); HEMATOCRIT 34.3 % (39.0-53.0); HEMOGLOBIN 11.9 g/dL (13.0-17.5); LYMPH # 1.3 x10^3/uL (1.0-4.8); LYMPH % 26 % (24-48); MEAN CORPUSCULAR HEMOGLOBIN 31 pg (25-35); MEAN CORPUSCULAR HGB CONC 35 g/dL (31-37); MEAN CORPUSCULAR VOLUME 90 fL (79-100); MONO # 0.4 x10^3/uL (0.0-1.1); MONO % 9 % (0-9); NEUT # 3.3 x10^3/uL (1.8-7.7); NEUT % 63 % (31-73); PLATELET COUNT 382 x10^3/uL (140-400); RED BLOOD COUNT 3.83 x10^6/uL (4.30-5.70); RED CELL DISTRIBUTION WIDTH 13.6 % (11.5-14.5); WHITE BLOOD COUNT 5.1 x10^3/uL (4.0-11.0)
[2020-08-19 16:32] LABS: CALCIUM 8.9 mg/dL (8.5-10.1); CREATININE 1.8 mg/dL (0.7-1.3); GFR 45.9; POTASSIUM 3.9 mmol/L (3.5-5.1)
[2020-08-19 16:38] LABS: ALBUMIN 3.2 g/dL (3.4-5.0); ALBUMIN/GLOBULIN RATIO 0.7 (1.0-1.7); TOTAL BILIRUBIN 0.3 mg/dL (0.2-1.0); TOTAL PROTEIN 7.5 g/dL (6.4-8.2)
[2020-08-19] MEDS ORDERED: IV NORMAL SALINE 1000ML BAG 1,000 ML IV ONE (17:30)
[2020-08-19 17:36] LABS: BILIRUBIN,URINE NEGATIVE (NEG); CLARITY,URINE CLEAR; COLOR,URINE YELLOW; NITRITE,URINE NEGATIVE (NEG); PROTEIN,URINE NEGATIVE (NEG-TRACE)
[2020-08-19 17:37] LABS: BACTERIA,URINE 0 /HPF (0-FEW); RBC,URINE 0 /HPF (0-2)
[2020-08-19 17:40] LABS: BARBITURATES NEG (NEG); BENZODIAZEPINES NEG (NEG); CANNABINOIDS NEG (NEG); COCAINE NEG (NEG); METHADONE NEG (NEG); OPIATES NEG (NEG); PHENCYCLIDINE NEG (NEG)
[2020-08-19 17:41] LABS: AMPHETAMINE/METHAMPHETAMINE NEG (NEG)
--- NOTE | 2020-08-19 18:59 | PHYS DOC ---
Past Medical History Past Medical History: CVA, Hypertension, Other Additional Past Medical Histor: vertigo Past Surgical History: Other Additional Past Surgical Histo: back surgery Smoking Status: Never Smoker Alcohol Use: Heavy Drug Use: None General Adult EDM: Chief Complaint: DIZZY/LIGHT HEADED HPI: HPI: Patient is a 65 year old male presents emergency department complaining of dizziness for the past week, patient denies any chest pains, denies shortness of breath, patient states that he gets dizzy and does not think great sometimes when he is walking, patient is unable to describe his altered mental status, patient does states that it happens to him every now and then while he is walking. Patient states that he takes lisinopril, amlodipine, and carvedilol for his high blood pressure. Patient denies any surgeries. He denies any allergies to medications. Patient denies recent chills, increased thirst, or increased urination. Patient denies any other physical complaints or physical listless. Review of Systems: Review of Systems: 14 body systems of review of systems have been reviewed. See HPI for pertinent positives and negative responses, otherwise all other systems are negative, nonpertinent or noncontributory. Heart Score: Risk Factors: Risk Factors: DM, Current or recent (<one month) smoker, HTN, HLP, family history of CAD, obesity. Risk Scores: Score 0 - 3: 2.5% MACE over next 6 weeks - Discharge Home Score 4 - 6: 20.3% MACE over next 6 weeks - Admit for Clinical Observation Score 7 - 10: 72.7% MACE over next 6 weeks - Early Invasive Strategies Current Medications: Current Medications Medications (Trade) Dose Ordered Sig/Johnny Start Time Stop Time Status Last Admin Dose Admin Sodium Chloride 1,000 ml @ 1,000 mls/hr 1X ONCE 08/19/20 17:30 08/19/20 18:29 DC 08/19/20 17:30 1,000 MLS/HR Allergies: Allergies: Allergies Coded Allergies Type Severity Reaction Last Updated Verified No Known Drug Allergies 05/11/17 No Physical Exam: PE: Constitutional: Well developed, well nourished, no acute distress, non-toxic appearance. HENT: Normocephalic, atraumatic, bilateral external ears normal, oropharynx moist, no oral exudates, nose normal. Eyes: PERRLA, EOMI, conjunctiva normal, no discharge. Neck: Normal range of motion, no tenderness, supple, no stridor. Cardiovascular:Heart rate regular rhythm, no murmur, heart sounds S1-S2 auscultation. Lungs & Thorax: Bilateral breath sounds clear to auscultation all lung rooney. Abdomen: Bowel sounds normal, soft, no tenderness, no masses, no pulsatile mas ses. Skin: Warm, dry, no erythema, no rash. Back: No tenderness, no CVA tenderness. Extremities: No tenderness, no cyanosis, no clubbing, ROM intact, no edema. Neurologic: Alert and oriented X 3, normal motor function, normal sensory function, no focal deficits noted. Egeland-Hallpike maneuver negative. Psychologic: Affect normal, judgement normal, mood normal. Current Patient Data: Labs: Laboratory Tests Test 08/19/20 15:55 08/19/20 17:24 White Blood Count 5.1 x10^3/uL (4.0-11.0) Red Blood Count 3.83 x10^6/uL (4.30-5.70) L Hemoglobin 11.9 g/dL (13.0-17.5) L Hematocrit 34.3 % (39.0-53.0) L Mean Corpuscular Volume 90 fL (79-100) Mean Corpuscular Hemoglobin 31 pg (25-35) Mean Corpuscular Hemoglobin Concent 35 g/dL (31-37) Red Cell Distribution Width 13.6 % (11.5-14.5) Platelet Count 382 x10^3/uL (140-400) Neutrophils (%) (Auto) 63 % (31-73) Lymphocytes (%) (Auto) 26 % (24-48) Monocytes (%) (Auto) 9 % (0-9) Eosinophils (%) (Auto) 2 % (0-3) Basophils (%) (Auto) 1 % (0-3) Neutrophils # (Auto) 3.3 x10^3/uL (1.8-7.7) Lymphocytes # (Auto) 1.3 x10^3/uL (1.0-4.8) Monocytes # (Auto) 0.4 x10^3/uL (0.0-1.1) Eosinophils # (Auto) 0.1 x10^3/uL (0.0-0.7) Basophils # (Auto) 0.0 x10^3/uL (0.0-0.2) Sodium Level 141 mmol/L (136-145) Potassium Level 3.9 mmol/L (3.5-5.1) Chloride Level 105 mmol/L (98-107) Carbon Dioxide Level 27 mmol/L (21-32) Anion Gap 9 (6-14) Blood Urea Nitrogen 34 mg/dL (8-26) H Creatinine 1.8 mg/dL (0.7-1.3) H Estimated GFR (Cockcroft-Gault) 45.9 BUN/Creatinine Ratio 19 (6-20) Glucose Level 88 mg/dL (70-99) Calcium Level 8.9 mg/dL (8.5-10.1) Total Bilirubin 0.3 mg/dL (0.2-1.0) Aspartate Amino Transferase (AST) 16 U/L (15-37) Alanine Aminotransferase (ALT) 22 U/L (16-63) Alkaline Phosphatase 81 U/L (46-116) Troponin I Quantitative < 0.017 ng/mL (0.000-0.055) Total Protein 7.5 g/dL (6.4-8.2) Albumin 3.2 g/dL (3.4-5.0) L Albumin/Globulin Ratio 0.7 (1.0-1.7) L Urine Collection Type Unknown Urine Color Yellow Urine Clarity Clear Urine pH 8.0 (<5.0-8.0) Urine Specific [place] 1.020 (1.000-1.030) Urine Protein Negative mg/dL (NEG-TRACE) Urine Glucose (UA) Negative mg/dL (NEG) Urine Ketones (Stick) Negative mg/dL (NEG) Urine Blood Negative (NEG) Urine Nitrite Negative (NEG) Urine Bilirubin Negative (NEG) Urine Urobilinogen Dipstick 1.0 mg/dL (0.2 mg/dL) Urine Leukocyte Esterase Small (NEG) Urine RBC 0 /HPF (0-2) Urine WBC 5-10 /HPF (0-4) Urine Squamous Epithelial Cells Few /LPF Urine Bacteria 0 /HPF (0-FEW) Urine Opiates Screen Neg (NEG) Urine Methadone Screen Neg (NEG) Urine Barbiturates Neg (NEG) Urine Phencyclidine Screen Neg (NEG) Urine Amphetamine/Methamphetamine Neg (NEG) Urine Benzodiazepines Screen Neg (NEG) Urine Cocaine Screen Neg (NEG) Urine Cannabinoids Screen Neg (NEG) Urine Ethyl Alcohol Neg (NEG) Laboratory Tests 08/19/20 15:55 Laboratory Tests 08/19/20 15:55 Vital Signs: Vital Signs Date Time Temp Pulse Resp B/P (MAP) Pulse Ox O2 Delivery O2 Flow Rate FiO2 08/19/20 14:13 97.9 98 18 128/73 (91) 100 Room Air 97.9 EKG: EKG: EKG performed at 1554, shows normal sinus rhythm with a heart rate of 75 bpm without other ectopy, UT interval 0.122, QTc interval 0.420, no acute STEMI, no acute ACS, no acute ischemia appreciated, EKG interpreted by ED attending ph ysician Dr. Smith. Radiology/Procedures: Radiology/Procedures: [] Course & Med Decision Making: Course & Med Decision Making Pertinent Labs and Imaging studies reviewed. (See chart for details) 65-year-old male, vital signs reviewed, presents emergency department for dizziness and lightheadedness. A cardiac work-up was initiated in the ED, CT head related to patient's family concerned about altered mental status. Patient was alert and oriented x3 without neurologic concerns during ER examination. Patient's orthostatic vital signs concerning for dehydration. 1 L normal saline ordered. Patient's labs equivocal, his urine was not infected, upon reexamination the patient no longer feels dizzy, however the patient did not feel dizzy during his emergency department stay. Repeat orthostatic vital signs negative for orthos tasis. Patient gave verbal understanding of discharge home instructions, follow-up with primary care, return to ER precautions or concerns, had no further questions or concerns discharged home without incident. Dragon Disclaimer: Dragon Disclaimer: This electronic medical record was generated, in whole or in part, using a voice recognition dictation system. Departure Departure Impression: Primary Impression: Dizzy spells Disposition: 01 DC HOME SELF CARE/HOMELESS Condition: IMPROVED Referrals: UNKNOWN PCP NAME (PCP) Patient Instructions: Dizziness Additional Instructions: Please follow-up with your primary care physician regarding your dizzy spells, return to emergency department for worsening symptoms or other concerns. EMERGENCY DEPARTMENT GENERAL DISCHARGE INSTRUCTIONS Thank you for coming to [facility] Emergency Department (ED) today and trusting us with you care. We trust that you had a positive experience in our Emergency Department. If you wish to speak to the department management, you may call the Director at [phone]. YOUR FOLLOW UP INSTRUCTIONS ARE FOLLOWS: 1. Do you have a private Doctor? If you do not have a private doctor, please ask for a resource list of physicians or clinics that may be able to assist you with follow up care. 2. The Emergency Physicain has interpreted your x-rays. The X-Ray specialist will also review them. If there is a change in the findings, you will be notified in 48 hours when at all possible. 3. A lab test or culture has been done, your results will be reviewed and you will be notified if you need a change in treatment. ADDITIONAL INSTRUCTIONS AND INFORMATION: 1. Your care today has been supervised by a physician who is specially trained in emergency care. Many problems require more than one evaluation for a complete diagnosis and treatment. We recommend that you schedule your follow up appointment as recommended to ensure complete treatment of you illness or injury. If you are unable to obtain follow up care and continue to have a problem, or if your condition worsens, we recommend that you return to the ED. 2. We are not able to safely determine your condition over the phone nor are we able to give sound medical advice over the phone. For these safety reasons, if you call for medical advice we will ask you to come to the ED for further evaluation. 3. If you have any questions regarding these discharge instructions please call the ED at [phone]. SAFETY INFORMATION: In the interest of safety, wellness, and injury prevention; we encourage you to wear your sealbelt, if you smoke; quite smoking, and we encourage family to use a protective helmet for bicycling and other sporting events that present an increased risk for head injury. IF YOUR SYMPTOMS WORSEN OR NEW SYMPTOMS DEVELOP, OR YOU HAVE CONCERNS ABOUT YOUR CONDITION; OR IF YOUR CONDITION WORSENS WHILE YOU ARE WAITING FOR YOUR FOLLOW UP APPOINTMENT; EITHER CONTACT YOUR PRIMARY CARE DOCTOR, THE PHYSICIAN WHOSE NAME AND NUMBER YOU WERE GIVEN, OR RETURN TO THE ED IMMEDIATELY. ALESIA DING APRN Aug 19, 2020 18:59
--- NOTE | 2020-08-20 14:44 | EKG ---
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
== END 2020-08-19 19:25 | disposition home or self-care (01) ==
LOC: ER 13:25
DX: R42 Dizziness and giddiness (principal); I10 Essential (primary) hypertension; Z86.73 Personal history of transient ischemic attack (TIA), and cerebral infarction without residual deficits
CPT/HCPCS: 36415; 70450; 80053; 80307; 81001; 84484; 85025; 87086; 93005; 96360; 99285; J7030

== ENCOUNTER → 2020-12-02 | Outpatient (CLI) | payer MEDICARE ==
[2020-11-21 17:00] VITALS: BP 108/78
[~2020-12-02] MED LIST changes: +ATOR40TA59 PO; +CARV25TA2 PO; +CHOL5000 PO; -CHOL500051 PO; +HYDR-2769 PO; -HYDR50TA6 PO; +HYDR50TA9 PO; -ISOS60TA2 PO; +ISOS60TA55 PO; -LISI-334 PO; +LISI20TA18 PO; +OMEP40CA45 PO; +SPIR25TA5 PO; +TAMSULOSIN
[2020-12-02 11:00] LABS: BASO % 1 % (0-3); EOS # 0.2 x10^3/uL (0.0-0.7); EOS % 3 % (0-3); HEMATOCRIT 32.3 % (39.0-53.0); LYMPH # 1.3 x10^3/uL (1.0-4.8); LYMPH % 22 % (24-48); MEAN CORPUSCULAR HEMOGLOBIN 30 pg (25-35); MEAN CORPUSCULAR HGB CONC 34 g/dL (31-37); MEAN CORPUSCULAR VOLUME 89 fL (79-100); MONO # 0.3 x10^3/uL (0.0-1.1); MONO % 5 % (0-9); NEUT # 4.1 x10^3/uL (1.8-7.7); NEUT % 70 % (31-73); PLATELET COUNT 507 x10^3/uL (140-400); RED BLOOD COUNT 3.65 x10^6/uL (4.30-5.70); RED CELL DISTRIBUTION WIDTH 13.4 % (11.5-14.5); WHITE BLOOD COUNT 5.9 x10^3/uL (4.0-11.0)
[2020-12-02 11:23] LABS: CALCIUM 8.5 mg/dL (8.5-10.1); CREATININE 1.9 mg/dL (0.7-1.3); GFR 43.1
[2020-12-02 11:35] LABS: ALBUMIN 3.2 g/dL (3.4-5.0); ALBUMIN/GLOBULIN RATIO 0.7 (1.0-1.7); TOTAL BILIRUBIN 0.3 mg/dL (0.2-1.0); TOTAL PROTEIN 7.6 g/dL (6.4-8.2)
== END ==
LOC: ONCLAB 10:19
PROVIDERS: ATTEND Internal Medicine Hematology & Oncology
DX: C61 Malignant neoplasm of prostate (principal)
CPT/HCPCS: 80053; 83615; 84153; 84154; 85025

== ENCOUNTER → 2020-12-16 | Outpatient (CLI) | payer MEDICARE ==
[2020-11-21 17:00] VITALS: BP 108/78
[2020-12-16 10:28] LABS: BASO % 1 % (0-3); EOS # 0.1 x10^3/uL (0.0-0.7); EOS % 2 % (0-3); HEMATOCRIT 31.1 % (39.0-53.0); HEMOGLOBIN 10.6 g/dL (13.0-17.5); LYMPH # 1.3 x10^3/uL (1.0-4.8); LYMPH % 22 % (24-48); MEAN CORPUSCULAR HEMOGLOBIN 30 pg (25-35); MEAN CORPUSCULAR HGB CONC 34 g/dL (31-37); MEAN CORPUSCULAR VOLUME 88 fL (79-100); MONO # 0.4 x10^3/uL (0.0-1.1); MONO % 7 % (0-9); NEUT # 4.2 x10^3/uL (1.8-7.7); NEUT % 68 % (31-73); PLATELET COUNT 399 x10^3/uL (140-400); RED BLOOD COUNT 3.55 x10^6/uL (4.30-5.70); RED CELL DISTRIBUTION WIDTH 13.6 % (11.5-14.5); WHITE BLOOD COUNT 6.2 x10^3/uL (4.0-11.0)
[2020-12-16 10:40] LABS: CALCIUM 8.2 mg/dL (8.5-10.1); CREATININE 2.1 mg/dL (0.7-1.3); GFR 38.4; POTASSIUM 4.4 mmol/L (3.5-5.1)
[2020-12-16 10:46] LABS: ALBUMIN 3.2 g/dL (3.4-5.0); ALBUMIN/GLOBULIN RATIO 0.8 (1.0-1.7); TOTAL BILIRUBIN 0.2 mg/dL (0.2-1.0); TOTAL PROTEIN 7.3 g/dL (6.4-8.2)
== END ==
LOC: ONCLAB 10:08
PROVIDERS: ATTEND Physician Assistant
DX: C61 Malignant neoplasm of prostate (principal)
CPT/HCPCS: 80053; 83615; 84153; 84154; 85025

== ENCOUNTER → 2020-12-30 | Outpatient (CLI) | payer MEDICARE ==
[2020-11-21 17:00] VITALS: BP 108/78
[~2020-12-30] MED LIST changes: -OMEP40CA45 PO; +OMEP40CA7 PO
[2020-12-30 12:08] LABS: BASO % 1 % (0-3); EOS # 0.1 x10^3/uL (0.0-0.7); EOS % 4 % (0-3); HEMATOCRIT 32.2 % (39.0-53.0); HEMOGLOBIN 10.9 g/dL (13.0-17.5); LYMPH # 1.4 x10^3/uL (1.0-4.8); LYMPH % 34 % (24-48); MEAN CORPUSCULAR HEMOGLOBIN 30 pg (25-35); MEAN CORPUSCULAR HGB CONC 34 g/dL (31-37); MEAN CORPUSCULAR VOLUME 88 fL (79-100); MONO # 0.3 x10^3/uL (0.0-1.1); MONO % 7 % (0-9); NEUT # 2.2 x10^3/uL (1.8-7.7); NEUT % 55 % (31-73); PLATELET COUNT 371 x10^3/uL (140-400); RED BLOOD COUNT 3.66 x10^6/uL (4.30-5.70); WHITE BLOOD COUNT 4.1 x10^3/uL (4.0-11.0)
[2020-12-30 12:20] LABS: CALCIUM 8.2 mg/dL (8.5-10.1); CREATININE 1.7 mg/dL (0.7-1.3); POTASSIUM 3.9 mmol/L (3.5-5.1)
[2020-12-30 12:27] LABS: ALBUMIN 3.6 g/dL (3.4-5.0); ALBUMIN/GLOBULIN RATIO 0.9 (1.0-1.7); TOTAL BILIRUBIN 0.4 mg/dL (0.2-1.0); TOTAL PROTEIN 7.4 g/dL (6.4-8.2)
[2021-01-03 08:18] LABS: FREE PSA/PSA RATIO 36.7 % (.); PSA TOTAL 57.2 ng/mL (0.0-4.0)
== END ==
LOC: ONCLAB 08:00
PROVIDERS: ATTEND Internal Medicine Hematology & Oncology
DX: C61 Malignant neoplasm of prostate (principal)
CPT/HCPCS: 36415; 80053; 83615; 84153; 84154; 85025

== ENCOUNTER → 2021-01-13 | Outpatient (CLI) | payer MEDICARE ==
[2020-11-21 17:00] VITALS: BP 108/78
[2021-01-13 12:04] LABS: BASO % 1 % (0-3); EOS # 0.1 x10^3/uL (0.0-0.7); EOS % 3 % (0-3); HEMATOCRIT 34.2 % (39.0-53.0); HEMOGLOBIN 11.8 g/dL (13.0-17.5); LYMPH # 1.2 x10^3/uL (1.0-4.8); LYMPH % 28 % (24-48); MEAN CORPUSCULAR HEMOGLOBIN 31 pg (25-35); MEAN CORPUSCULAR HGB CONC 35 g/dL (31-37); MEAN CORPUSCULAR VOLUME 88 fL (79-100); MONO # 0.3 x10^3/uL (0.0-1.1); MONO % 7 % (0-9); NEUT # 2.7 x10^3/uL (1.8-7.7); NEUT % 62 % (31-73); PLATELET COUNT 293 x10^3/uL (140-400); RED BLOOD COUNT 3.88 x10^6/uL (4.30-5.70); RED CELL DISTRIBUTION WIDTH 14.2 % (11.5-14.5); WHITE BLOOD COUNT 4.4 x10^3/uL (4.0-11.0)
[2021-01-13 12:37] LABS: CALCIUM 8.3 mg/dL (8.5-10.1); CREATININE 1.9 mg/dL (0.7-1.3); GFR 43.1
[2021-01-13 12:44] LABS: ALBUMIN 3.8 g/dL (3.4-5.0); TOTAL BILIRUBIN 0.3 mg/dL (0.2-1.0); TOTAL PROTEIN 7.6 g/dL (6.4-8.2)
== END ==
LOC: ONCLAB 11:29
PROVIDERS: ATTEND Physician Assistant
DX: C61 Malignant neoplasm of prostate (principal)
CPT/HCPCS: 80053; 83615; 84153; 84154; 85025

== ENCOUNTER → 2021-01-27 | Outpatient (CLI) | payer MEDICARE ==
[2020-11-21 17:00] VITALS: BP 108/78
[2021-01-27 11:40] LABS: BASO % 1 % (0-3); EOS # 0.2 x10^3/uL (0.0-0.7); EOS % 4 % (0-3); HEMATOCRIT 34.6 % (39.0-53.0); HEMOGLOBIN 11.8 g/dL (13.0-17.5); LYMPH # 1.3 x10^3/uL (1.0-4.8); LYMPH % 30 % (24-48); MEAN CORPUSCULAR HEMOGLOBIN 30 pg (25-35); MEAN CORPUSCULAR HGB CONC 34 g/dL (31-37); MEAN CORPUSCULAR VOLUME 89 fL (79-100); MONO # 0.3 x10^3/uL (0.0-1.1); MONO % 7 % (0-9); NEUT # 2.6 x10^3/uL (1.8-7.7); NEUT % 59 % (31-73); PLATELET COUNT 259 x10^3/uL (140-400); RED CELL DISTRIBUTION WIDTH 14.5 % (11.5-14.5); WHITE BLOOD COUNT 4.4 x10^3/uL (4.0-11.0)
[2021-01-27 11:54] LABS: CREATININE 1.6 mg/dL (0.7-1.3); GFR 52.6; POTASSIUM 4.1 mmol/L (3.5-5.1)
[2021-01-27 12:00] LABS: ALBUMIN 3.7 g/dL (3.4-5.0); TOTAL BILIRUBIN 0.2 mg/dL (0.2-1.0); TOTAL PROTEIN 7.3 g/dL (6.4-8.2)
== END ==
LOC: ONCLAB 10:57
PROVIDERS: ATTEND Physician Assistant
DX: C61 Malignant neoplasm of prostate (principal)
CPT/HCPCS: 80053; 83615; 84153; 84154; 85025

== ENCOUNTER → 2021-01-28 | Outpatient (CLI) | payer MEDICARE ==
[2020-11-21 17:00] VITALS: BP 108/78
--- NOTE | 2021-01-28 09:21 | RAD ---
EXAM: Abdomen sonogram. HISTORY: Elevated alkaline phosphatase. Prostate cancer. Pain. TECHNIQUE: Sonographic imaging of the abdomen was performed. COMPARISON: CT dated 11/20/2020. FINDINGS: The liver is normal in size. The left hepatic lobe is not well seen due to bowel gas. No fo abdirahman hepatic lesion is seen. The common bile duct is normal in caliber. The gallbladder is unremarkabl e. The pancreas and inferior vena cava are partially obscured due to bowel gas. The right kidney is n ormal in size. No solid or cystic renal lesion or hydronephrosis is seen. IMPRESSION: 1. Limited exam due to bowel gas. The left hepatic lobe, pancreas and inferior vena cava are not well seen. 2. No convincing acute sonographic finding. Electronically signed by: Ree Galindo MD (01/28/2021 9:18 AM) [id number]
== END ==
LOC: US 08:45
PROVIDERS: ATTEND Physician Assistant
DX: C61 Malignant neoplasm of prostate (principal)
CPT/HCPCS: 76705

== ENCOUNTER → 2021-02-25 | Outpatient (CLI) | payer MEDICARE ==
[2020-11-21 17:00] VITALS: BP 108/78
[2021-02-25 11:36] LABS: BASO % 1 % (0-3); EOS # 0.1 x10^3/uL (0.0-0.7); EOS % 3 % (0-3); HEMATOCRIT 35.2 % (39.0-53.0); HEMOGLOBIN 11.9 g/dL (13.0-17.5); LYMPH # 1.3 x10^3/uL (1.0-4.8); LYMPH % 29 % (24-48); MEAN CORPUSCULAR HEMOGLOBIN 30 pg (25-35); MEAN CORPUSCULAR HGB CONC 34 g/dL (31-37); MEAN CORPUSCULAR VOLUME 89 fL (79-100); MONO # 0.3 x10^3/uL (0.0-1.1); MONO % 7 % (0-9); NEUT # 2.7 x10^3/uL (1.8-7.7); NEUT % 61 % (31-73); PLATELET COUNT 266 x10^3/uL (140-400); RED BLOOD COUNT 3.96 x10^6/uL (4.30-5.70); RED CELL DISTRIBUTION WIDTH 14.2 % (11.5-14.5); WHITE BLOOD COUNT 4.5 x10^3/uL (4.0-11.0)
[2021-02-25 11:48] LABS: CALCIUM 8.8 mg/dL (8.5-10.1); CREATININE 1.5 mg/dL (0.7-1.3); GFR 56.7; POTASSIUM 3.7 mmol/L (3.5-5.1)
[2021-02-25 11:55] LABS: ALBUMIN 3.4 g/dL (3.4-5.0); ALBUMIN/GLOBULIN RATIO 0.9 (1.0-1.7); TOTAL BILIRUBIN 0.1 mg/dL (0.2-1.0); TOTAL PROTEIN 7.1 g/dL (6.4-8.2)
[2021-02-26 16:36] LABS: FREE PSA/PSA RATIO 50.6 % (.); PSA FREE 2.63 ng/mL; PSA TOTAL 5.2 ng/mL (0.0-4.0)
== END ==
LOC: ONCLAB 11:09
PROVIDERS: ATTEND Physician Assistant
DX: C61 Malignant neoplasm of prostate (principal)
CPT/HCPCS: 36415; 80053; 83615; 84153; 84154; 85025

== ENCOUNTER → 2021-03-03 | Outpatient (CLI) | payer MEDICARE ==
[2020-11-21 17:00] VITALS: BP 108/78
[~2021-03-03] MED LIST changes: +CONTRAST GIVEN. MC PRN; +IOHEXOL 240 MG/ML 50ML VIAL. PO ONE; +IOHEXOL 300 MG/ML 100ML VIAL. IV ONE
--- NOTE | 2021-03-03 12:37 | RAD ---
EXAM: Chest, abdomen and pelvis CT with intravenous contrast. HISTORY: Prostate cancer. TECHNIQUE: Computed tomographic images of the chest, abdomen and pelvis were obtained following the a dministration of intravenous contrast. Multiplanar reformatting was performed. *One or more of the following individualized dose reduction techniques were utilized for this examina tion: 1. Automated exposure control. 2. Adjustment of the mA and/or kV according to patient size. 3. Use of iterative reconstruction technique. COMPARISON: 11/20/2020. FINDINGS: Chest: There has been interval decrease in a 1.4 cm nodule within the right lower lobe abutting the r ight pleural fissure, previously measuring 9 cm. There is also been decrease in a 4 mm nodule within the lingula abutting the pleural fissure, previously measuring 6 mm. There is cardiomegaly. There are prominent mediastinal and hilar lymph nodes. There has been interval decrease in previously demonstr ated left supraclavicular lymphadenopathy. For reference purposes, the largest residual lymph node me asures 6 mm compared to a prior measurement of 2.0 cm. These are not pathologically enlarged. There i s calcified atherosclerotic plaque involving the coronary arteries. There is mild right gynecomastia. There is no pneumothorax or pleural effusion. There is mild emphysema. There is posterior dependent and basilar atelectasis. There is diffuse osseous metastatic disease. No pathologic fracture is seen. Abdomen and pelvis: There is a stable 10 mm right hepatic cyst. There is no suspicious hepatic lesion . The gallbladder, pancreas, spleen and right adrenal gland are unremarkable. There is slight nodular ity of the bee of the left adrenal gland, likely physiologic or due to a tiny adenoma of no clinical significance. There is a 4.6 cm complicated left renal cyst. There is no hydronephrosis. There is no appendicitis. There is no bowel obstruction. There is no abnormal bowel wall thickening. The aorta i s normal in caliber. The previously demonstrated pathologically enlarged retroperitoneal lymph nodes have significantly decreased in size. For reference purposes, there is a right iliac chain lymph node measuring 10 mm, compared to a prior measurement of 1.8 cm. The bladder wall slightly thickened. The re is diffuse osseous metastatic disease. No pathologic fracture is seen. There is degenerative khan e throughout the lumbar spine, resulting in severe central canal stenosis at L4-L5. There are lesser degrees of foraminal and central canal stenosis at the remainder of the lumbar levels. IMPRESSION: 1. Decrease in the size of a 1.4 cm right lower lobe pulmonary nodule and 6 mm lingular nodule, consi stent with interval therapy response. 2. Decrease in left supraclavicular and retroperitoneal lymphadenopathy, also consistent with interva l therapy response. 3. Significant progression and diffuse osseous metastatic disease, consistent with disease progressio n. 4. Stable slightly complicated cyst within the left kidney. This is characterized on a sonogram perfo rmed 11/21/2020. 5. Bladder wall thickening, possibly due to pelvic radiation or relative decompression. 6. Right gynecomastia. 7. Emphysema. 8. Stable 10 mm liver lesion, the attenuation of which favors a cyst. Electronically signed by: Ree Galindo MD (03/03/2021 12:35 PM) [id number]
--- NOTE | 2021-03-03 13:54 | RAD ---
EXAM: Nuclear bone scan. HISTORY: Prostate cancer. TECHNIQUE: Following the intravenous injection of 23 mCi of Tc 99m labeled methylene diphosphonate (M DP), whole body imaging was performed. COMPARISON: CT obtained on the same date. FINDINGS: There are multiple scattered areas of radiotracer activity throughout the axial and appendi cular skeleton consistent with metastatic disease. These are seen involving the calvarium, maxillofac ial bones, spine, multiple ribs, bony pelvis and proximal femora. There is also symmetric radiotracer activity involving both shoulders and a focus of radiotracer in involving the right knee which may b e due to additional metastasis or degenerative in etiology. IMPRESSION: Extensive osseous metastatic disease. Electronically signed by: Ree Galindo MD (03/03/2021 1:52 PM) [id number]
== END ==
LOC: NM 09:52
PROVIDERS: ATTEND Internal Medicine Hematology & Oncology
DX: C79.51 Secondary malignant neoplasm of bone (principal); C61 Malignant neoplasm of prostate; R91.1 Solitary pulmonary nodule; J98.11 Atelectasis; J43.9 Emphysema, unspecified; I51.7 Cardiomegaly; R59.0 Localized enlarged lymph nodes; R59.1 Generalized enlarged lymph nodes; I25.10 Atherosclerotic heart disease of native coronary artery without angina pectoris; N62 Hypertrophy of breast; K76.89 Other specified diseases of liver; N28.1 Cyst of kidney, acquired; M48.061 Spinal stenosis, lumbar region without neurogenic claudication
CPT/HCPCS: 71260; 74177; 78306; A9503; Q9966; Q9967

== ENCOUNTER → 2021-03-10 | Outpatient (CLI) | payer MEDICARE ==
[2020-11-21 17:00] VITALS: BP 108/78
[~2021-03-10] MED LIST changes: -CONTRAST GIVEN. MC PRN; -IOHEXOL 240 MG/ML 50ML VIAL. PO ONE; -IOHEXOL 300 MG/ML 100ML VIAL. IV ONE
[2021-03-10 14:34] LABS: BASO % 1 % (0-3); EOS # 0.1 x10^3/uL (0.0-0.7); EOS % 2 % (0-3); HEMATOCRIT 35.4 % (39.0-53.0); HEMOGLOBIN 12.4 g/dL (13.0-17.5); LYMPH # 1.3 x10^3/uL (1.0-4.8); LYMPH % 33 % (24-48); MEAN CORPUSCULAR HEMOGLOBIN 31 pg (25-35); MEAN CORPUSCULAR HGB CONC 35 g/dL (31-37); MEAN CORPUSCULAR VOLUME 88 fL (79-100); MONO # 0.3 x10^3/uL (0.0-1.1); MONO % 8 % (0-9); NEUT # 2.2 x10^3/uL (1.8-7.7); NEUT % 56 % (31-73); PLATELET COUNT 259 x10^3/uL (140-400); RED BLOOD COUNT 4.01 x10^6/uL (4.30-5.70)
[2021-03-10 14:44] LABS: CALCIUM 8.6 mg/dL (8.5-10.1); CREATININE 1.6 mg/dL (0.7-1.3); GFR 52.4; POTASSIUM 3.8 mmol/L (3.5-5.1)
[2021-03-10 14:51] LABS: ALBUMIN 3.5 g/dL (3.4-5.0); ALBUMIN/GLOBULIN RATIO 0.9 (1.0-1.7); TOTAL BILIRUBIN 0.1 mg/dL (0.2-1.0); TOTAL PROTEIN 7.2 g/dL (6.4-8.2)
[2021-03-12 11:14] LABS: FREE PSA/PSA RATIO 56.4 % (.); PSA FREE 2.48 ng/mL; PSA TOTAL 4.4 ng/mL (0.0-4.0)
== END ==
LOC: ONCLAB 13:34
PROVIDERS: ATTEND Internal Medicine Hematology & Oncology
DX: C79.51 Secondary malignant neoplasm of bone (principal); C61 Malignant neoplasm of prostate; N18.32 Chronic kidney disease, stage 3b
CPT/HCPCS: 36415; 80053; 83615; 84153; 84154; 85025

== ENCOUNTER → 2021-04-09 | Outpatient (CLI) | payer MEDICARE ==
[2020-11-21 17:00] VITALS: BP 108/78
[2021-04-09 13:12] LABS: BASO % 1 % (0-3); EOS # 0.1 x10^3/uL (0.0-0.7); EOS % 1 % (0-3); HEMATOCRIT 34.1 % (39.0-53.0); LYMPH # 1.2 x10^3/uL (1.0-4.8); LYMPH % 26 % (24-48); MEAN CORPUSCULAR HEMOGLOBIN 31 pg (25-35); MEAN CORPUSCULAR HGB CONC 35 g/dL (31-37); MEAN CORPUSCULAR VOLUME 89 fL (79-100); MONO # 0.5 x10^3/uL (0.0-1.1); MONO % 11 % (0-9); NEUT # 2.9 x10^3/uL (1.8-7.7); NEUT % 62 % (31-73); PLATELET COUNT 332 x10^3/uL (140-400); RED BLOOD COUNT 3.85 x10^6/uL (4.30-5.70); RED CELL DISTRIBUTION WIDTH 13.6 % (11.5-14.5); WHITE BLOOD COUNT 4.6 x10^3/uL (4.0-11.0)
[2021-04-09 13:46] LABS: CALCIUM 6.5 mg/dL (8.5-10.1); CREATININE 1.7 mg/dL (0.7-1.3); GFR 48.9; POTASSIUM 3.7 mmol/L (3.5-5.1)
[2021-04-09 13:56] LABS: ALBUMIN 3.5 g/dL (3.4-5.0); ALBUMIN/GLOBULIN RATIO 0.9 (1.0-1.7); TOTAL BILIRUBIN 0.3 mg/dL (0.2-1.0); TOTAL PROTEIN 7.3 g/dL (6.4-8.2)
[2021-04-10 16:15] LABS: FREE PSA/PSA RATIO 57.3 % (.); PSA FREE 1.89 ng/mL; PSA TOTAL 3.3 ng/mL (0.0-4.0)
== END ==
LOC: ONCLAB 12:53
PROVIDERS: ATTEND Physician Assistant
DX: C61 Malignant neoplasm of prostate (principal); N18.32 Chronic kidney disease, stage 3b
CPT/HCPCS: 36415; 80053; 82306; 83615; 84153; 84154; 85025

== ENCOUNTER → 2021-04-10 | Outpatient (CLI) | payer MEDICARE ==
[2020-11-21 17:00] VITALS: BP 108/78
[2021-04-10 12:15] LABS: CALCIUM 7.1 mg/dL (8.5-10.1); CREATININE 1.4 mg/dL (0.7-1.3); GFR 61.2; POTASSIUM 4.2 mmol/L (3.5-5.1)
[2021-04-10 12:16] LABS: MAGNESIUM 2.1 mg/dL (1.8-2.4)
== END ==
LOC: ONCLAB 11:19
PROVIDERS: ATTEND Physician Assistant
DX: C61 Malignant neoplasm of prostate (principal)
CPT/HCPCS: 36415; 80048; 83735

== ENCOUNTER → 2021-04-15 | Outpatient (CLI) | payer MEDICARE ==
[2020-11-21 17:00] VITALS: BP 108/78
[2021-04-15 09:46] LABS: BASO % 1 % (0-3); EOS # 0.1 x10^3/uL (0.0-0.7); EOS % 2 % (0-3); HEMATOCRIT 35.7 % (39.0-53.0); HEMOGLOBIN 12.3 g/dL (13.0-17.5); LYMPH # 1.4 x10^3/uL (1.0-4.8); LYMPH % 27 % (24-48); MEAN CORPUSCULAR HEMOGLOBIN 31 pg (25-35); MEAN CORPUSCULAR HGB CONC 35 g/dL (31-37); MEAN CORPUSCULAR VOLUME 89 fL (79-100); MONO # 0.4 x10^3/uL (0.0-1.1); MONO % 7 % (0-9); NEUT # 3.2 x10^3/uL (1.8-7.7); NEUT % 63 % (31-73); PLATELET COUNT 330 x10^3/uL (140-400); RED CELL DISTRIBUTION WIDTH 13.5 % (11.5-14.5); WHITE BLOOD COUNT 5.2 x10^3/uL (4.0-11.0)
[2021-04-15 09:59] LABS: CALCIUM 7.8 mg/dL (8.5-10.1); CREATININE 1.7 mg/dL (0.7-1.3); GFR 48.9; POTASSIUM 3.8 mmol/L (3.5-5.1)
[2021-04-15 10:06] LABS: ALBUMIN 3.7 g/dL (3.4-5.0); TOTAL BILIRUBIN 0.2 mg/dL (0.2-1.0); TOTAL PROTEIN 7.5 g/dL (6.4-8.2)
== END ==
LOC: ONCLAB 08:56
PROVIDERS: ATTEND Physician Assistant
DX: C61 Malignant neoplasm of prostate (principal)
CPT/HCPCS: 80053; 83615; 84153; 84154; 85025

== ENCOUNTER → 2021-04-20 | Outpatient (CLI) | payer MEDICARE ==
[2020-11-21 17:00] VITALS: BP 108/78
[2021-04-20 10:20] LABS: BASO % 1 % (0-3); EOS # 0.1 x10^3/uL (0.0-0.7); EOS % 3 % (0-3); HEMATOCRIT 33.1 % (39.0-53.0); HEMOGLOBIN 11.3 g/dL (13.0-17.5); LYMPH # 1.2 x10^3/uL (1.0-4.8); LYMPH % 30 % (24-48); MEAN CORPUSCULAR HEMOGLOBIN 31 pg (25-35); MEAN CORPUSCULAR HGB CONC 34 g/dL (31-37); MEAN CORPUSCULAR VOLUME 90 fL (79-100); MONO # 0.3 x10^3/uL (0.0-1.1); MONO % 9 % (0-9); NEUT # 2.3 x10^3/uL (1.8-7.7); NEUT % 58 % (31-73); PLATELET COUNT 277 x10^3/uL (140-400); RED BLOOD COUNT 3.68 x10^6/uL (4.30-5.70); RED CELL DISTRIBUTION WIDTH 13.1 % (11.5-14.5); WHITE BLOOD COUNT 3.9 x10^3/uL (4.0-11.0)
[2021-04-20 10:30] LABS: CALCIUM 7.6 mg/dL (8.5-10.1); CREATININE 2.3 mg/dL (0.7-1.3); GFR 34.5; POTASSIUM 3.7 mmol/L (3.5-5.1)
[2021-04-20 10:36] LABS: ALBUMIN 3.5 g/dL (3.4-5.0); TOTAL BILIRUBIN 0.2 mg/dL (0.2-1.0); TOTAL PROTEIN 7.1 g/dL (6.4-8.2)
[2021-04-20 12:25] LABS: BILIRUBIN,URINE NEGATIVE (NEG); CLARITY,URINE CLEAR; COLOR,URINE YELLOW; NITRITE,URINE NEGATIVE (NEG); PROTEIN,URINE NEGATIVE (NEG-TRACE); UROBILINOGEN,URINE 0.2 mg/dL (0.2 mg/dL)
[2021-04-20 12:35] LABS: CALCIUM 8.6 mg/dL (8.5-10.1); CREATININE 2.3 mg/dL (0.7-1.3); GFR 34.5; POTASSIUM 3.8 mmol/L (3.5-5.1)
[2021-04-20 12:35] LABS: BACTERIA,URINE 0 /HPF (0-FEW); RBC,URINE 0 /HPF (0-2); WBC,URINE OCC /HPF (0-4)
[2021-04-21 15:13] LABS: FREE PSA/PSA RATIO 60.3 % (.); PSA FREE 2.05 ng/mL; PSA TOTAL 3.4 ng/mL (0.0-4.0)
== END ==
LOC: ONCLAB 09:37
PROVIDERS: ATTEND Physician Assistant
DX: C61 Malignant neoplasm of prostate (principal); N18.32 Chronic kidney disease, stage 3b; E83.51 Hypocalcemia
CPT/HCPCS: 36415; 80048; 80053; 81001; 84153; 84154; 85025

== ENCOUNTER → 2021-04-27 | Outpatient (CLI) | payer MEDICARE ==
[2020-11-21 17:00] VITALS: BP 108/78
[2021-04-27 11:08] LABS: BASO % 1 % (0-3); EOS # 0.1 x10^3/uL (0.0-0.7); EOS % 2 % (0-3); HEMATOCRIT 32.9 % (39.0-53.0); HEMOGLOBIN 11.6 g/dL (13.0-17.5); LYMPH # 1.4 x10^3/uL (1.0-4.8); LYMPH % 31 % (24-48); MEAN CORPUSCULAR HEMOGLOBIN 32 pg (25-35); MEAN CORPUSCULAR HGB CONC 35 g/dL (31-37); MEAN CORPUSCULAR VOLUME 90 fL (79-100); MONO # 0.3 x10^3/uL (0.0-1.1); MONO % 8 % (0-9); NEUT # 2.6 x10^3/uL (1.8-7.7); NEUT % 59 % (31-73); PLATELET COUNT 276 x10^3/uL (140-400); RED BLOOD COUNT 3.66 x10^6/uL (4.30-5.70); RED CELL DISTRIBUTION WIDTH 12.7 % (11.5-14.5); WHITE BLOOD COUNT 4.4 x10^3/uL (4.0-11.0)
[2021-04-27 11:31] LABS: CALCIUM 8.5 mg/dL (8.5-10.1); CREATININE 1.7 mg/dL (0.7-1.3); GFR 48.9; POTASSIUM 3.8 mmol/L (3.5-5.1)
[2021-04-27 11:36] LABS: ALBUMIN 3.4 g/dL (3.4-5.0); ALBUMIN/GLOBULIN RATIO 0.9 (1.0-1.7); PHOSPHORUS 2.9 mg/dL (2.6-4.7); TOTAL BILIRUBIN 0.2 mg/dL (0.2-1.0); TOTAL PROTEIN 7.1 g/dL (6.4-8.2)
[2021-04-28 16:10] LABS: CALCIUM PTH 8.9 mg/dL (8.6-10.2); CREATININE PTH 1.63 mg/dL (0.76-1.27); PTH INTACT 61 pg/mL (15-65)
== END ==
LOC: ONCLAB 10:02
PROVIDERS: ATTEND Internal Medicine Hematology & Oncology
DX: C61 Malignant neoplasm of prostate (principal); E83.51 Hypocalcemia
CPT/HCPCS: 80053; 83615; 83735; 83970; 84100; 84153; 84154; 85025

== ENCOUNTER → 2021-05-07 | Outpatient (CLI) | payer MEDICARE ==
[2020-11-21 17:00] VITALS: BP 108/78
[2021-05-07 13:54] LABS: BASO % 1 % (0-3); EOS # 0.1 x10^3/uL (0.0-0.7); EOS % 2 % (0-3); HEMATOCRIT 34.8 % (39.0-53.0); HEMOGLOBIN 11.9 g/dL (13.0-17.5); LYMPH # 1.4 x10^3/uL (1.0-4.8); LYMPH % 35 % (24-48); MEAN CORPUSCULAR HEMOGLOBIN 31 pg (25-35); MEAN CORPUSCULAR HGB CONC 34 g/dL (31-37); MEAN CORPUSCULAR VOLUME 90 fL (79-100); MONO # 0.3 x10^3/uL (0.0-1.1); MONO % 6 % (0-9); NEUT # 2.3 x10^3/uL (1.8-7.7); NEUT % 57 % (31-73); PLATELET COUNT 319 x10^3/uL (140-400); RED BLOOD COUNT 3.89 x10^6/uL (4.30-5.70); RED CELL DISTRIBUTION WIDTH 12.9 % (11.5-14.5); WHITE BLOOD COUNT 4.1 x10^3/uL (4.0-11.0)
[2021-05-07 14:18] LABS: ALBUMIN 3.8 g/dL (3.4-5.0); CALCIUM 7.8 mg/dL (8.5-10.1); CREATININE 1.6 mg/dL (0.7-1.3); GFR 52.4; TOTAL BILIRUBIN 0.2 mg/dL (0.2-1.0); TOTAL PROTEIN 7.8 g/dL (6.4-8.2)
[2021-05-07 14:50] LABS: POTASSIUM 3.9 mmol/L (3.5-5.1)
[2021-05-11 11:19] LABS: FREE PSA/PSA RATIO 68.1 % (.); PSA FREE 1.84 ng/mL; PSA TOTAL 2.7 ng/mL (0.0-4.0)
== END ==
LOC: ONCLAB 13:19
PROVIDERS: ATTEND Internal Medicine Hematology & Oncology
DX: C61 Malignant neoplasm of prostate (principal)
CPT/HCPCS: 36415; 80053; 83615; 84153; 84154; 85025

== ENCOUNTER → 2021-05-14 | Outpatient (CLI) | payer MEDICARE ==
[2020-11-21 17:00] VITALS: BP 108/78
[2021-05-14 12:20] LABS: BASO % 1 % (0-3); EOS # 0.1 x10^3/uL (0.0-0.7); EOS % 2 % (0-3); HEMATOCRIT 34.7 % (39.0-53.0); HEMOGLOBIN 11.9 g/dL (13.0-17.5); LYMPH # 1.3 x10^3/uL (1.0-4.8); LYMPH % 36 % (24-48); MEAN CORPUSCULAR HEMOGLOBIN 31 pg (25-35); MEAN CORPUSCULAR HGB CONC 34 g/dL (31-37); MEAN CORPUSCULAR VOLUME 91 fL (79-100); MONO # 0.3 x10^3/uL (0.0-1.1); MONO % 7 % (0-9); NEUT # 1.8 x10^3/uL (1.8-7.7); NEUT % 54 % (31-73); PLATELET COUNT 302 x10^3/uL (140-400); RED BLOOD COUNT 3.83 x10^6/uL (4.30-5.70); WHITE BLOOD COUNT 3.4 x10^3/uL (4.0-11.0)
[2021-05-14 12:44] LABS: CALCIUM 7.6 mg/dL (8.5-10.1); CREATININE 1.5 mg/dL (0.7-1.3); GFR 56.5; POTASSIUM 3.7 mmol/L (3.5-5.1)
[2021-05-14 12:52] LABS: ALBUMIN 3.6 g/dL (3.4-5.0); ALBUMIN/GLOBULIN RATIO 0.9 (1.0-1.7); TOTAL BILIRUBIN 0.2 mg/dL (0.2-1.0); TOTAL PROTEIN 7.4 g/dL (6.4-8.2)
== END ==
LOC: ONCLAB 11:59
PROVIDERS: ATTEND Internal Medicine Hematology & Oncology
DX: C61 Malignant neoplasm of prostate (principal)
CPT/HCPCS: 36415; 80053; 84153; 85025; G0103

== ENCOUNTER → 2021-06-02 | Outpatient (CLI) | payer MEDICARE ==
[2020-11-21 17:00] VITALS: BP 108/78
[2021-06-02 11:13] LABS: BASO % 0 % (0-3); CALCIUM 8.7 mg/dL (8.5-10.1); CREATININE 1.4 mg/dL (0.7-1.3); EOS # 0.1 x10^3/uL (0.0-0.7); EOS % 2 % (0-3); GFR 61.2; HEMATOCRIT 35.1 % (39.0-53.0); HEMOGLOBIN 11.9 g/dL (13.0-17.5); LYMPH # 1.3 x10^3/uL (1.0-4.8); LYMPH % 26 % (24-48); MEAN CORPUSCULAR HEMOGLOBIN 31 pg (25-35); MEAN CORPUSCULAR HGB CONC 34 g/dL (31-37); MEAN CORPUSCULAR VOLUME 91 fL (79-100); MONO # 0.3 x10^3/uL (0.0-1.1); MONO % 6 % (0-9); NEUT # 3.1 x10^3/uL (1.8-7.7); NEUT % 65 % (31-73); PLATELET COUNT 289 x10^3/uL (140-400); POTASSIUM 3.8 mmol/L (3.5-5.1); RED BLOOD COUNT 3.88 x10^6/uL (4.30-5.70); RED CELL DISTRIBUTION WIDTH 12.9 % (11.5-14.5); WHITE BLOOD COUNT 4.8 x10^3/uL (4.0-11.0)
[2021-06-02 11:20] LABS: ALBUMIN 3.5 g/dL (3.4-5.0); ALBUMIN/GLOBULIN RATIO 0.9 (1.0-1.7); TOTAL BILIRUBIN 0.2 mg/dL (0.2-1.0); TOTAL PROTEIN 7.3 g/dL (6.4-8.2)
== END ==
LOC: ONCLAB 10:36
PROVIDERS: ATTEND Physician Assistant
DX: C61 Malignant neoplasm of prostate (principal)
CPT/HCPCS: 36415; 80053; 83615; 84153; 85025; G0103

== ENCOUNTER → 2021-06-08 | Outpatient (CLI) | payer MEDICARE ==
[2020-11-21 17:00] VITALS: BP 108/78
[2021-06-08 11:27] LABS: BASO % 1 % (0-3); EOS # 0.1 x10^3/uL (0.0-0.7); EOS % 2 % (0-3); HEMATOCRIT 35.4 % (39.0-53.0); HEMOGLOBIN 12.2 g/dL (13.0-17.5); LYMPH # 1.4 x10^3/uL (1.0-4.8); LYMPH % 35 % (24-48); MEAN CORPUSCULAR HEMOGLOBIN 31 pg (25-35); MEAN CORPUSCULAR HGB CONC 34 g/dL (31-37); MEAN CORPUSCULAR VOLUME 90 fL (79-100); MONO # 0.2 x10^3/uL (0.0-1.1); MONO % 6 % (0-9); NEUT # 2.3 x10^3/uL (1.8-7.7); NEUT % 57 % (31-73); PLATELET COUNT 296 x10^3/uL (140-400); RED BLOOD COUNT 3.93 x10^6/uL (4.30-5.70); RED CELL DISTRIBUTION WIDTH 12.8 % (11.5-14.5); WHITE BLOOD COUNT 4.1 x10^3/uL (4.0-11.0)
[2021-06-08 11:34] LABS: CALCIUM 8.7 mg/dL (8.5-10.1); CREATININE 1.6 mg/dL (0.7-1.3); GFR 52.4; POTASSIUM 4.3 mmol/L (3.5-5.1)
[2021-06-08 11:39] LABS: ALBUMIN 3.6 g/dL (3.4-5.0); ALBUMIN/GLOBULIN RATIO 0.9 (1.0-1.7); TOTAL BILIRUBIN 0.2 mg/dL (0.2-1.0); TOTAL PROTEIN 7.5 g/dL (6.4-8.2)
== END ==
LOC: ONCLAB 11:03
PROVIDERS: ATTEND Physician Assistant
DX: C61 Malignant neoplasm of prostate (principal)
CPT/HCPCS: 36415; 80053; 83615; 84153; 85025; G0103

== ENCOUNTER → 2021-06-22 | Outpatient (CLI) | payer MEDICARE ==
[2020-11-21 17:00] VITALS: BP 108/78
[2021-06-22 11:28] LABS: BASO % 1 % (0-3); EOS # 0.1 x10^3/uL (0.0-0.7); EOS % 2 % (0-3); HEMATOCRIT 34.4 % (39.0-53.0); HEMOGLOBIN 11.9 g/dL (13.0-17.5); LYMPH # 1.5 x10^3/uL (1.0-4.8); LYMPH % 34 % (24-48); MEAN CORPUSCULAR HEMOGLOBIN 31 pg (25-35); MEAN CORPUSCULAR HGB CONC 35 g/dL (31-37); MEAN CORPUSCULAR VOLUME 89 fL (79-100); MONO # 0.3 x10^3/uL (0.0-1.1); MONO % 8 % (0-9); NEUT # 2.5 x10^3/uL (1.8-7.7); NEUT % 56 % (31-73); PLATELET COUNT 305 x10^3/uL (140-400); RED BLOOD COUNT 3.85 x10^6/uL (4.30-5.70); WHITE BLOOD COUNT 4.4 x10^3/uL (4.0-11.0)
[2021-06-22 11:40] LABS: CALCIUM 8.8 mg/dL (8.5-10.1); CREATININE 1.3 mg/dL (0.7-1.3); GFR 66.6; POTASSIUM 3.9 mmol/L (3.5-5.1)
[2021-06-22 11:46] LABS: ALBUMIN 3.6 g/dL (3.4-5.0); TOTAL BILIRUBIN 0.2 mg/dL (0.2-1.0); TOTAL PROTEIN 7.3 g/dL (6.4-8.2)
== END ==
LOC: ONCLAB 11:05
PROVIDERS: ATTEND Physician Assistant
DX: C61 Malignant neoplasm of prostate (principal)
CPT/HCPCS: 36415; 80053; 83615; 84153; 85025; G0103

== ENCOUNTER → 2021-06-30 | Outpatient (CLI) | payer MEDICARE ==
[2020-11-21 17:00] VITALS: BP 108/78
[~2021-06-30] MED LIST changes: +IOHEXOL 240 MG/ML 50ML VIAL. PO ONE; +IOHEXOL 300 MG/ML 100ML VIAL. IV ONE
--- NOTE | 2021-06-30 12:39 | RAD ---
CT chest abdomen pelvis with contrast dated 06/30/2021. COMPARISON: 03/03/2021 Clinical data indication: Follow-up prostate cancer. TECHNIQUE: Contiguous axial imaging the chest abdomen pelvis performed after the intravenous administration of 7 5 cc Omnipaque 300. One or more of the following individualized dose reduction techniques were utilized for this examinat ion: 1. Automated exposure control 2. Adjustment of the mA and/or kV according to patient size 3. Use of iterative reconstruction technique. FINDINGS: Heart size is mildly enlarged. No pericardial effusion. Coronary artery calcifications. Nonpathologic enlarged mediastinal and right hilar lymph nodes are similar to prior study. No axillary or supracla vicular lymphadenopathy. Thyroid gland is unremarkable. Central airways are patent. There is a noncalcified pulmonary nodule in the right lower lobe on image 42 that measures 1.2 cm, unchanged. Lungs are otherwise clear. No new pulmonary nodule or mass. No p leural effusion. Mild emphysema with mild diffuse bronchial wall thickening. Liver, spleen, pancreas, adrenal glands, gallbladder and kidneys are unremarkable. There is a low-den sity focus in the right lobe liver that is unchanged, likely cyst. There is also a low-density focus at the lower pole left kidney is stable from prior exams. No hydronephrosis. Partially opacified GI tract is normal in caliber and contour. No bowel wall thickening. No inflammat ory stranding in the mesentery. No ascites or lymphadenopathy. Images the pelvis a nondistended urinary bladder. Prostate gland mildly enlarged. No free fluid or pe lvic adenopathy. Small bilateral inguinal hernia containing only fat. Prostate gland is stable in chelsie earance. There is a large right-sided hydrocele. Bone windows show extensive sclerotic foci throughout all visualized osseous structures, similar to t he most recent study. IMPRESSION: 1. Extensive bony metastatic disease, similar to the recent exam. 2. Noncalcified pulmonary nodule in the right lower lobe, stable from prior study. 3. Borderline enlarged mediastinal lymph nodes, unchanged. No new lymphadenopathy 4. Complex left renal cyst, stable from prior study. 5. Mild wall thickening of the urinary bladder, nonspecific but unchanged. 6. Large right hydrocele. Electronically signed by: Raghavendra Diaz MD (06/30/2021 12:37 PM) [facility]
--- NOTE | 2021-07-01 08:43 | RAD ---
Whole body bone scan HISTORY: Prostate cancer with bone metastases 25.5 mCi technetium 99m MDP was measured intravenously spot views are whole-body obtained after appro priate delay. FINDINGS: There is heterogeneous increased scintigraphic activity within the osseous structures especially the pelvis the spine and ribs and shoulders. IMPRESSION: Diffuse osseous blastic lesions consistent with metastatic prostate cancer. Electronically signed by: Tayo Granados III, MD (07/01/2021 8:41 AM) [facility]
== END ==
LOC: NM 07:54
PROVIDERS: ATTEND Physician Assistant
DX: C79.51 Secondary malignant neoplasm of bone (principal); C61 Malignant neoplasm of prostate; R91.1 Solitary pulmonary nodule; N28.1 Cyst of kidney, acquired; N43.3 Hydrocele, unspecified; N32.89 Other specified disorders of bladder; I51.7 Cardiomegaly; I25.10 Atherosclerotic heart disease of native coronary artery without angina pectoris; J43.9 Emphysema, unspecified; K44.9 Diaphragmatic hernia without obstruction or gangrene; N40.0 Benign prostatic hyperplasia without lower urinary tract symptoms
CPT/HCPCS: 71260; 74177; 78306; A9503; Q9966; Q9967

== ENCOUNTER → 2021-07-07 | Outpatient (CLI) | payer MEDICARE ==
[2020-11-21 17:00] VITALS: BP 108/78
[~2021-07-07] MED LIST changes: -IOHEXOL 240 MG/ML 50ML VIAL. PO ONE; -IOHEXOL 300 MG/ML 100ML VIAL. IV ONE
[2021-07-07 10:32] LABS: BASO % 1 % (0-3); EOS # 0.1 x10^3/uL (0.0-0.7); EOS % 3 % (0-3); HEMATOCRIT 36.1 % (39.0-53.0); HEMOGLOBIN 12.3 g/dL (13.0-17.5); LYMPH # 1.4 x10^3/uL (1.0-4.8); LYMPH % 32 % (24-48); MEAN CORPUSCULAR HEMOGLOBIN 30 pg (25-35); MEAN CORPUSCULAR HGB CONC 34 g/dL (31-37); MEAN CORPUSCULAR VOLUME 89 fL (79-100); MONO # 0.4 x10^3/uL (0.0-1.1); MONO % 9 % (0-9); NEUT # 2.4 x10^3/uL (1.8-7.7); NEUT % 56 % (31-73); PLATELET COUNT 414 x10^3/uL (140-400); RED BLOOD COUNT 4.05 x10^6/uL (4.30-5.70); RED CELL DISTRIBUTION WIDTH 12.8 % (11.5-14.5); WHITE BLOOD COUNT 4.3 x10^3/uL (4.0-11.0)
[2021-07-07 10:38] LABS: CALCIUM 8.4 mg/dL (8.5-10.1); CREATININE 1.3 mg/dL (0.7-1.3); GFR 66.6; POTASSIUM 3.4 mmol/L (3.5-5.1)
[2021-07-07 10:44] LABS: ALBUMIN 3.4 g/dL (3.4-5.0); ALBUMIN/GLOBULIN RATIO 0.8 (1.0-1.7); TOTAL BILIRUBIN 0.2 mg/dL (0.2-1.0); TOTAL PROTEIN 7.5 g/dL (6.4-8.2)
== END ==
LOC: ONCLAB 10:10
PROVIDERS: ATTEND Internal Medicine Hematology & Oncology
DX: C61 Malignant neoplasm of prostate (principal)
CPT/HCPCS: 36415; 80053; 83615; 84153; 85025; G0103

== ENCOUNTER → 2021-08-04 | Outpatient (CLI) | payer MEDICARE ==
[2020-11-21 17:00] VITALS: BP 108/78
[2021-08-04 11:13] LABS: BASO % 0 % (0-3); EOS # 0.1 x10^3/uL (0.0-0.7); EOS % 2 % (0-3); HEMATOCRIT 36.2 % (39.0-53.0); HEMOGLOBIN 12.8 g/dL (13.0-17.5); LYMPH # 1.5 x10^3/uL (1.0-4.8); LYMPH % 35 % (24-48); MEAN CORPUSCULAR HEMOGLOBIN 31 pg (25-35); MEAN CORPUSCULAR HGB CONC 36 g/dL (31-37); MEAN CORPUSCULAR VOLUME 87 fL (79-100); MONO # 0.3 x10^3/uL (0.0-1.1); MONO % 8 % (0-9); NEUT # 2.4 x10^3/uL (1.8-7.7); NEUT % 54 % (31-73); PLATELET COUNT 298 x10^3/uL (140-400); RED BLOOD COUNT 4.15 x10^6/uL (4.30-5.70); WHITE BLOOD COUNT 4.4 x10^3/uL (4.0-11.0)
[2021-08-04 11:18] LABS: CALCIUM 8.5 mg/dL (8.5-10.1); CREATININE 1.4 mg/dL (0.7-1.3); GFR 61.2; POTASSIUM 3.5 mmol/L (3.5-5.1)
[2021-08-04 11:28] LABS: ALBUMIN 3.5 g/dL (3.4-5.0); ALBUMIN/GLOBULIN RATIO 0.8 (1.0-1.7); TOTAL BILIRUBIN 0.1 mg/dL (0.2-1.0)
== END ==
LOC: ONCLAB 10:14
PROVIDERS: ATTEND Internal Medicine Hematology & Oncology
DX: C61 Malignant neoplasm of prostate (principal); R91.8 Other nonspecific abnormal finding of lung field
CPT/HCPCS: 80053; 83615; 84153; 84154; 85025

== ENCOUNTER → 2021-09-14 | Outpatient (CLI) | payer MEDICARE ==
[2020-11-21 17:00] VITALS: BP 108/78
[2021-09-14 10:01] LABS: BASO % 1 % (0-3); EOS # 0.1 x10^3/uL (0.0-0.7); EOS % 2 % (0-3); HEMATOCRIT 37.5 % (39.0-53.0); HEMOGLOBIN 12.6 g/dL (13.0-17.5); LYMPH # 1.7 x10^3/uL (1.0-4.8); LYMPH % 33 % (24-48); MEAN CORPUSCULAR HEMOGLOBIN 30 pg (25-35); MEAN CORPUSCULAR HGB CONC 34 g/dL (31-37); MEAN CORPUSCULAR VOLUME 90 fL (79-100); MONO # 0.4 x10^3/uL (0.0-1.1); MONO % 7 % (0-9); NEUT # 2.9 x10^3/uL (1.8-7.7); NEUT % 58 % (31-73); PLATELET COUNT 315 x10^3/uL (140-400); RED BLOOD COUNT 4.19 x10^6/uL (4.30-5.70); RED CELL DISTRIBUTION WIDTH 13.8 % (11.5-14.5); WHITE BLOOD COUNT 5.1 x10^3/uL (4.0-11.0)
[2021-09-14 10:08] LABS: CALCIUM 8.5 mg/dL (8.5-10.1); CREATININE 1.5 mg/dL (0.7-1.3); GFR 56.5; POTASSIUM 3.3 mmol/L (3.5-5.1)
[2021-09-14 10:15] LABS: ALBUMIN 3.4 g/dL (3.4-5.0); ALBUMIN/GLOBULIN RATIO 0.9 (1.0-1.7); TOTAL BILIRUBIN 0.1 mg/dL (0.2-1.0); TOTAL PROTEIN 7.4 g/dL (6.4-8.2)
== END ==
LOC: ONCLAB 09:40
PROVIDERS: ATTEND Internal Medicine Hematology & Oncology
DX: C61 Malignant neoplasm of prostate (principal)
CPT/HCPCS: 80053; 83615; 84153; 84154; 85025

== ENCOUNTER → 2021-10-12 | Outpatient (CLI) | payer MEDICARE ==
[2020-11-21 17:00] VITALS: BP 108/78
[2021-10-12 11:36] LABS: BASO % 1 % (0-3); EOS # 0.1 x10^3/uL (0.0-0.7); EOS % 2 % (0-3); HEMATOCRIT 35.2 % (39.0-53.0); HEMOGLOBIN 11.9 g/dL (13.0-17.5); LYMPH # 1.2 x10^3/uL (1.0-4.8); LYMPH % 28 % (24-48); MEAN CORPUSCULAR HEMOGLOBIN 30 pg (25-35); MEAN CORPUSCULAR HGB CONC 34 g/dL (31-37); MEAN CORPUSCULAR VOLUME 89 fL (79-100); MONO # 0.2 x10^3/uL (0.0-1.1); MONO % 6 % (0-9); NEUT # 2.6 x10^3/uL (1.8-7.7); NEUT % 64 % (31-73); PLATELET COUNT 307 x10^3/uL (140-400); RED BLOOD COUNT 3.94 x10^6/uL (4.30-5.70); RED CELL DISTRIBUTION WIDTH 13.7 % (11.5-14.5); WHITE BLOOD COUNT 4.1 x10^3/uL (4.0-11.0)
[2021-10-12 11:46] LABS: CALCIUM 8.9 mg/dL (8.5-10.1); CREATININE 1.7 mg/dL (0.7-1.3); GFR 48.9; POTASSIUM 3.3 mmol/L (3.5-5.1)
[2021-10-12 11:53] LABS: ALBUMIN 3.4 g/dL (3.4-5.0); ALBUMIN/GLOBULIN RATIO 0.9 (1.0-1.7); TOTAL BILIRUBIN 0.2 mg/dL (0.2-1.0); TOTAL PROTEIN 7.3 g/dL (6.4-8.2)
== END ==
LOC: ONCLAB 11:13
PROVIDERS: ATTEND Internal Medicine Hematology & Oncology
DX: C61 Malignant neoplasm of prostate (principal)
CPT/HCPCS: 80053; 83615; 84153; 84154; 85025

== ENCOUNTER → 2021-10-28 | Outpatient (CLI) | payer MEDICARE ==
[2020-11-21 17:00] VITALS: BP 108/78
[~2021-10-28] MED LIST changes: +CONTRAST GIVEN. MC PRN; +IOHEXOL 240 MG/ML 50ML VIAL. PO ONE; +IOHEXOL 300 MG/ML 100ML VIAL. IV ONE
--- NOTE | 2021-10-28 11:23 | RAD ---
CT CHEST+ABD+PELVIS W dated 10/28/2021 8:57 AM Indication:Reason: restaging prostate cancer / Spl. Instructions: omni 300 60ml omni 240 50ml / Hist ory: Comparison: CT 06/30/2021. Technique: CT images were performed through the chest, abdomen and pelvis using infusion of 60 mL Omn ipaque 300 and following oral contrast ingestion. One or more of the following individualized dose reduction techniques were utilized for this examinat ion: 1. Automated exposure control 2. Adjustment of the mA and/or kV according to patient size 3. Use of iterative reconstruction technique Findings: CT chest: Small nodule is again shown in the right lower lobe along the posterior margin of the major fissure. If anything, this may have decreased slightly in size. AP dimension measures roughly 7 mm c ompared with about 9 mm by my measurement on the prior study. No new pulmonary mass or nodule is seen . The central airways appear normal. No enlarged lymph nodes are seen. Evaluation is slightly limited by noncontrast technique. There is suggestion of a tiny left thyroid lobe nodule. Bone windows again demonstrate diffuse sclerotic and a static disease. Allowing for slight difference in slice position ing, this appears very similar to the prior exam. CT abdomen and pelvis: Low-attenuation lesion in the right lobe of the liver is consistent with a cys t. No significant new liver parenchymal abnormality is evident. The spleen appears normal. Kidneys sh ow no obstruction or calculus. A cystic lesion is again seen arising posteriorly from the right kidne y. This has not changed appreciably. No new renal abnormality is seen. The adrenal glands are not enl arged. The pancreas appears normal. No retroperitoneal or mesenteric adenopathy is seen. There is no apparent abdominal mass or inflammatory process. Images through the pelvis show no abnormality of the distal ureters or bladder. No new pelvic or ingu inal adenopathy is seen. There is no apparent pelvic mass or inflammatory process. Extensive scleroti c skeletal metastases. Very similar to the prior exam. A right-sided hydrocele is again shown. IMPRESSION: Skeletal metastatic disease, stable from the prior exam. No significant new abnormality is identified . A right lung nodule may have regressed slightly. Electronically signed by: Herb Holman Jr., MD (10/28/2021 10:23 AM) [facility]
== END ==
LOC: CT 07:07
PROVIDERS: ATTEND Physician Assistant
DX: C79.51 Secondary malignant neoplasm of bone (principal); C61 Malignant neoplasm of prostate; R91.1 Solitary pulmonary nodule; K76.89 Other specified diseases of liver; N28.89 Other specified disorders of kidney and ureter; N43.2 Other hydrocele
CPT/HCPCS: 71260; 74177; Q9966; Q9967

== ENCOUNTER → 2021-10-29 | Outpatient (CLI) | payer MEDICARE ==
[2020-11-21 17:00] VITALS: BP 108/78
[~2021-10-29] MED LIST changes: -CONTRAST GIVEN. MC PRN; -IOHEXOL 240 MG/ML 50ML VIAL. PO ONE; -IOHEXOL 300 MG/ML 100ML VIAL. IV ONE
[2021-10-29 11:02] LABS: BASO % 1 % (0-3); EOS # 0.1 x10^3/uL (0.0-0.7); EOS % 3 % (0-3); HEMATOCRIT 36.6 % (39.0-53.0); HEMOGLOBIN 12.2 g/dL (13.0-17.5); LYMPH # 1.3 x10^3/uL (1.0-4.8); LYMPH % 38 % (24-48); MEAN CORPUSCULAR HEMOGLOBIN 30 pg (25-35); MEAN CORPUSCULAR HGB CONC 33 g/dL (31-37); MEAN CORPUSCULAR VOLUME 89 fL (79-100); MONO # 0.3 x10^3/uL (0.0-1.1); MONO % 9 % (0-9); NEUT # 1.7 x10^3/uL (1.8-7.7); NEUT % 50 % (31-73); PLATELET COUNT 291 x10^3/uL (140-400); RED BLOOD COUNT 4.09 x10^6/uL (4.30-5.70); RED CELL DISTRIBUTION WIDTH 13.3 % (11.5-14.5); WHITE BLOOD COUNT 3.5 x10^3/uL (4.0-11.0)
[2021-10-29 11:15] LABS: CALCIUM 8.9 mg/dL (8.5-10.1); CREATININE 1.4 mg/dL (0.7-1.3); GFR 61.2; POTASSIUM 3.8 mmol/L (3.5-5.1)
[2021-10-29 11:21] LABS: ALBUMIN 3.9 g/dL (3.4-5.0); TOTAL BILIRUBIN 0.3 mg/dL (0.2-1.0); TOTAL PROTEIN 7.7 g/dL (6.4-8.2)
[2021-10-30 19:35] LABS: FREE PSA/PSA RATIO 40.2 % (.); PSA FREE 1.89 ng/mL; PSA TOTAL 4.7 ng/mL (0.0-4.0)
== END ==
LOC: ONCLAB 10:38
PROVIDERS: ATTEND Internal Medicine Hematology & Oncology
DX: C61 Malignant neoplasm of prostate (principal)
CPT/HCPCS: 36415; 80053; 83615; 84153; 84154; 85025

== ENCOUNTER → 2021-11-12 | Outpatient (CLI) | payer MEDICARE ==
[2020-11-21 17:00] VITALS: BP 108/78
[2021-11-12 10:53] LABS: BASO % 1 % (0-3); EOS # 0.1 x10^3/uL (0.0-0.7); EOS % 2 % (0-3); HEMATOCRIT 34.1 % (39.0-53.0); HEMOGLOBIN 11.8 g/dL (13.0-17.5); LYMPH # 1.2 x10^3/uL (1.0-4.8); LYMPH % 29 % (24-48); MEAN CORPUSCULAR HEMOGLOBIN 31 pg (25-35); MEAN CORPUSCULAR HGB CONC 35 g/dL (31-37); MEAN CORPUSCULAR VOLUME 89 fL (79-100); MONO # 0.4 x10^3/uL (0.0-1.1); MONO % 8 % (0-9); NEUT # 2.6 x10^3/uL (1.8-7.7); NEUT % 60 % (31-73); PLATELET COUNT 280 x10^3/uL (140-400); RED BLOOD COUNT 3.83 x10^6/uL (4.30-5.70); RED CELL DISTRIBUTION WIDTH 13.1 % (11.5-14.5); WHITE BLOOD COUNT 4.4 x10^3/uL (4.0-11.0)
[2021-11-12 10:58] LABS: CALCIUM 8.7 mg/dL (8.5-10.1); CREATININE 1.4 mg/dL (0.7-1.3); GFR 61.2; POTASSIUM 3.8 mmol/L (3.5-5.1)
[2021-11-12 11:00] LABS: ALBUMIN 3.6 g/dL (3.4-5.0); ALBUMIN/GLOBULIN RATIO 0.9 (1.0-1.7); TOTAL BILIRUBIN 0.3 mg/dL (0.2-1.0); TOTAL PROTEIN 7.6 g/dL (6.4-8.2)
[2021-11-14 11:12] LABS: FREE PSA/PSA RATIO 33.8 % (.); PSA FREE 1.79 ng/mL; PSA TOTAL 5.3 ng/mL (0.0-4.0)
== END ==
LOC: ONCLAB 10:08
PROVIDERS: ATTEND Physician Assistant
DX: C61 Malignant neoplasm of prostate (principal)
CPT/HCPCS: 36415; 80053; 83615; 84153; 84154; 85025

== ENCOUNTER → 2021-12-10 | Outpatient (CLI) | payer MEDICARE ==
[2020-11-21 17:00] VITALS: BP 108/78
[2021-12-10 09:34] LABS: BASO % 1 % (0-3); EOS # 0.1 x10^3/uL (0.0-0.7); EOS % 2 % (0-3); HEMATOCRIT 33.8 % (39.0-53.0); HEMOGLOBIN 11.8 g/dL (13.0-17.5); LYMPH # 1.5 x10^3/uL (1.0-4.8); LYMPH % 28 % (24-48); MEAN CORPUSCULAR HEMOGLOBIN 31 pg (25-35); MEAN CORPUSCULAR HGB CONC 35 g/dL (31-37); MEAN CORPUSCULAR VOLUME 89 fL (79-100); MONO # 0.4 x10^3/uL (0.0-1.1); MONO % 8 % (0-9); NEUT # 3.3 x10^3/uL (1.8-7.7); NEUT % 61 % (31-73); PLATELET COUNT 270 x10^3/uL (140-400); RED BLOOD COUNT 3.78 x10^6/uL (4.30-5.70); RED CELL DISTRIBUTION WIDTH 13.1 % (11.5-14.5); WHITE BLOOD COUNT 5.4 x10^3/uL (4.0-11.0)
[2021-12-10 09:51] LABS: CALCIUM 8.7 mg/dL (8.5-10.1); CREATININE 1.7 mg/dL (0.7-1.3); GFR 48.9; POTASSIUM 3.6 mmol/L (3.5-5.1)
[2021-12-10 09:56] LABS: ALBUMIN 3.3 g/dL (3.4-5.0); ALBUMIN/GLOBULIN RATIO 0.8 (1.0-1.7); TOTAL BILIRUBIN 0.3 mg/dL (0.2-1.0); TOTAL PROTEIN 7.4 g/dL (6.4-8.2)
[2021-12-11 13:19] LABS: PSA FREE 2.45 ng/mL
== END ==
LOC: ONCLAB 08:53
PROVIDERS: ATTEND Internal Medicine Hematology & Oncology
DX: C79.51 Secondary malignant neoplasm of bone (principal); C61 Malignant neoplasm of prostate; R91.8 Other nonspecific abnormal finding of lung field; D64.9 Anemia, unspecified; E83.51 Hypocalcemia; G89.3 Neoplasm related pain (acute) (chronic)
CPT/HCPCS: 36415; 80053; 83615; 84153; 84154; 85025